=== PATIENT | female | born 1940 | race African-American/Black ===

== ENCOUNTER 2021-05-09 13:05 | Inpatient (IN) | payer OTHER, MEDICAID ==
[~2021-05-09] VITALS: Ht 165.1 cm; Wt 75.7 kg
[2021-05-09 13:12] VITALS: BP 98/47
--- NOTE | 2021-05-09 13:12 | NUR ---
christianne HERBERT, taken to bed 06 via [facility].
--- NOTE | 2021-05-09 13:30 | NUR ---
81 YEAR OLD FEMALE COMPLAINS OF HEADACHE, DIZZINESS X 4 DAYS. PT STATES TODAY SHE FELL ONTO BACK DUE TO DIZZINESS, DENIES HITTING HEAD. PT DENIES LOC, DENEIS NAUSEA VOMITTING. PT AOX4, BREATHING EVEN AND UNLABORED, SKIN WARM AND DRY. BED IN LOWEST POSITION, LOCKED, BED RAIL UPX1. PMH - HTN, VERTIGO ALLERGIES - NKA
[2021-05-09] MEDS ORDERED: MECLIZINE 25 MG TAB PO ONE (13:35)
[2021-05-09] MEDS ORDERED: ACETAMINOPHEN 325 MG TAB PO ONE (13:35)
[2021-05-09] MEDS ORDERED: NACL 0.9% 1,000 ML IV ONE (13:35)
[2021-05-09 13:46] LABS: BASOPHILS % (AUTO) 0.2 % (0.0-2.0); EOSINOPHILS # (AUTO) 0.2 K/uL (0-0.4); EOSINOPHILS % (AUTO) 2.7 % (0.0-4.0); HEMATOCRIT 28.3 % (36-48); HEMOGLOBIN 8.7 g/dL (12.0-16.0); LYMPHOCYTES # (AUTO) 2.7 K/uL (2.5-16.5); MEAN CORPUSCULAR HEMOGLOBIN 24 pg (27-31); MEAN CORPUSCULAR HGB CONC 31 g/dL (33-37); MEAN CORPUSCULAR VOLUME 77.6 fL (80-94); MONOCYTES # (AUTO) 0.5 K/uL (0.8-1.0); MONOCYTES % (AUTO) 7.3 % (1.7-9.3); NEUTROPHILS # (AUTO) 3.9 K/uL (1.8-7.7); NEUTROPHILS % (AUTO) 52.8 % (42.2-75.2); PLATELET COUNT (AUTO) 356 K/uL (140-450); RED BLOOD CELL COUNT(AUTO) 3.64 MIL/uL (4.20-5.40); WHITE BLOOD COUNT (AUTO) 7.3 K/uL (4.8-10.8)
[2021-05-09 14:06] LABS: ALBUMIN 3.2 g/dL (3.4-5.0); ANION GAP 11.7 (8-16); ASPARTATE AMINOTRANSFERASE 22 U/L (15-37); CHLORIDE 109 mmol/L (98-107); CREATININE 1.5 mg/dL (0.6-1.3); GLUCOSE 93 mg/dL (74-106); POTASSIUM 3.7 mmol/L (3.5-5.1); SODIUM SERUM 139 mmol/L (136-145); TOTAL BILIRUBIN 0.2 mg/dL (0.0-1.0); UREA NITROGEN, BLOOD 33 mg/dL (7-18)
--- NOTE | 2021-05-09 15:30 | NUR ---
PT ALERT AND AWAKE, BREATHING EVEN AND UNLABORED. NO DISTRESS NOTED. WILL CONTINUE TO MONITOR.
[2021-05-09 16:06] LABS: APPEARANCE,URINE CLEAR (CLEAR); BILIRUBIN,URINE 1+ (NEGATIVE); BLOOD, URINE NEGATIVE (NEGATIVE); COLOR,URINE YELLOW (YELLOW); LEUKOCYTE ESTERASE ,URINE NEGATIVE (NEGATIVE); NITRITE, URINE NEGATIVE (NEGATIVE); UGLUCOSE NEGATIVE (NEGATIVE)
--- NOTE | 2021-05-09 17:00 | NUR ---
PT ALERT AND AWAKE, BREATHING EVEN AND UNLABORED. NO DISTRESS NOTED. WILL CONTINUE TO MONITOR.
[2021-05-09] MEDS ORDERED: IBUPROFEN 600 MG TAB PO SCH (17:05)
[2021-05-09] MEDS ORDERED: KETOROLAC 30 MG/ML VIAL IVP ONE (17:05)
--- NOTE | 2021-05-09 17:36 | NUR ---
PT ATTEMPTED TO AMBULATE WITH RN AND ERMD AT BEDSIDE, PT STATES SHE WAS STILL DIZZY AND APPEARED UNSTABLE WHEN GETTING UP. PT ONLY ABLE TO AMBULATE SOME STEPS BEFORE ASSISTED BACK TO BED
[2021-05-09] MEDS ORDERED: ACETAMINOPHEN 325 MG TAB PO PRN (17:55)
[2021-05-09] MEDS ORDERED: DOCUSATE SODIUM 100 MG GELCAP PO PRN (17:55)
[2021-05-09] MEDS ORDERED: guaiFENesin DM 200/20 MG-10 ML 10 ML UDC PO PRN (17:55)
[2021-05-09] MEDS ORDERED: ONDANSETRON 4 MG/2 ML VIAL IM/IVP PRN (17:55)
[2021-05-09] MEDS ORDERED: ZOLPIDEM 5 MG TAB PO PRN (17:55)
[2021-05-09] MEDS ORDERED: MECLIZINE 25 MG TAB PO PRN (18:00)
[2021-05-09] MEDS ORDERED: cefTRIAXone 1,000 MG VIAL ONE (18:34)
[2021-05-09] MEDS ORDERED: HYDR-1098 PO (18:37)
[2021-05-09] MEDS ORDERED: AMLO10TA PO (18:37)
[2021-05-09] MEDS ORDERED: FOLI1TAB90 PO (18:37)
[2021-05-09] MEDS ORDERED: LYR50 PO (18:37)
[2021-05-09] MEDS ORDERED: ZOLP5TAB1 PO (18:37)
[2021-05-09] MEDS ORDERED: BACL10TA4 PO (18:37)
[2021-05-09] MEDS ORDERED: PANT40EC PO (18:37)
[2021-05-09] MEDS ORDERED: APIX5TAB PO (18:37)
[2021-05-09] MEDS ORDERED: SENN-73 PO (18:37)
[2021-05-09] MEDS ORDERED: LISI-486 PO (18:37)
[2021-05-09] MEDS ORDERED: METO25TE71 PO (18:37)
[2021-05-09] MEDS: NACL 0.9% 1,000 ML IV SCH (18:41)
--- NOTE | 2021-05-09 19:13 | NUR ---
REPORT GIVEN TO TONY ROOT, TRANSFER OF CARE AT THIS TIME
--- NOTE | 2021-05-09 19:14 | NUR ---
RECEIVED REPORT FROM SYLVIE ROOT FOR CONTINUITY OF CARE. PT IN BED STILL FEELING DIZZY. PT DENIES ANY PAIN OR DISCOMFORT AT THIS TIME.
[2021-05-09 19:28] LABS: PROTHROMBIN TIME 10.3 secs (10.8-13.4)
[2021-05-09 19:38] LABS: CHOL/HDL RATIO 3.9 (1-4.5); FREE T4 (FREE THYROXINE) 0.78 ng/dL (0.76-1.46); MAGNESIUM 1.9 mg/dL (1.8-2.4); PHOSPHORUS 3.3 mg/dL (2.5-4.9); THYROID STIMULATING HORMONE 0.78 uIU/mL (0.34-3.74)
--- NOTE | 2021-05-09 19:51 | NUR ---
RECEIVED REPORT FROM TONY ROOT ER NURSE OVER THE PHONE, PT IN STABLE CONDITION.
[2021-05-09 20:30] VITALS: BP 103/56
--- NOTE | 2021-05-09 20:30 | NUR ---
PT UP TO FLOOR VIA GURNEY, SHE WAS ABLE TO ASSIST WITH TRANSFER TO BED A OF ROOM 120. MRSA SWAB DONE, PT HAS R WRIST G 20 RUINING N/S AT 120. V/S FOLLOWS: T 97.0 P 56 R 20 B/P 130/70 02 100% ON ROOM AIR. ADMISSION QUESTIONS ASKED AND ANSWERED. ALL FALLS PRECAUTIONS IN PLACE
--- NOTE | 2021-05-09 21:00 | NUR ---
Patient will be admitted to care of DR. SHIRLEY. Admited to TELEMETRY. Will go to room 120A. Belongings list completed. Report to BALDEMAR ROOT. VSS STABLE. PT TRANSPORTED BY RN AND EMT VIA [facility].
[2021-05-10] MEDS: HYDROcodone/APAP 7.5/325 MG 1 TAB PO PRN ×2 (00:33→19:55)
--- NOTE | 2021-05-10 00:35 | NUR ---
PT IN BED , SHE C/O OF PAIN IN HER STOMACH, SHE WAS GIVEN NORCO 7.5/325MG PO/PRN FOR MODERATE PAIN. PT WAS ALSO GIVEN BED COOK AND UNDERSTANDS THAT SHE CANNOT WALK DUE TO DIZZINESS. NS RUNNING AT 120 V/S FOLLOWS: T 97 P 58 R 20 B/P 103/56 02 97% ON ROOM AIR. ALL REQUESTS ATTENDED BY STAFF.
--- NOTE | 2021-05-10 04:00 | NUR ---
PT WAS GIVEN REQUESTED BED COOK , N/S RUNNING ORDERED. V/S FOLLOWS: T 97.0 P 58 R 20 B/P 147/71 02 99% ON ROOM AIR.
[2021-05-10] MEDS: NACL 0.9% 1,000 ML IV SCH ×3 (06:15→18:32)
[2021-05-10 06:45] LABS: BASOPHILS # (AUTO) 0.1 K/uL (0.00-0.22); BASOPHILS % (AUTO) 2.1 % (0.0-2.0); EOSINOPHILS # (AUTO) 0.2 K/uL (0-0.4); EOSINOPHILS % (AUTO) 4.7 % (0.0-4.0); HEMATOCRIT 28.2 % (36-48); HEMOGLOBIN 8.8 g/dL (12.0-16.0); LYMPHOCYTES # (AUTO) 1.6 K/uL (2.5-16.5); LYMPHOCYTES % (AUTO) 32.4 % (20.5-51.1); MEAN CORPUSCULAR HEMOGLOBIN 25 pg (27-31); MEAN CORPUSCULAR HGB CONC 31 g/dL (33-37); MEAN CORPUSCULAR VOLUME 79.1 fL (80-94); MONOCYTES # (AUTO) 0.4 K/uL (0.8-1.0); MONOCYTES % (AUTO) 7.4 % (1.7-9.3); NEUTROPHILS # (AUTO) 2.7 K/uL (1.8-7.7); NEUTROPHILS % (AUTO) 53.4 % (42.2-75.2); PLATELET COUNT (AUTO) 366 K/uL (140-450); RED BLOOD CELL COUNT(AUTO) 3.57 MIL/uL (4.20-5.40); RED CELL DISTRIBUTION WIDTH 17.1 % (11.6-13.7)
[2021-05-10 07:00] LABS: ANION GAP 11.2 (8-16); CARBON DIOXIDE 25.6 mmol/L (21-32); CHLORIDE 110 mmol/L (98-107); CREATININE 1.1 mg/dL (0.6-1.3); GLUCOSE 91 mg/dL (74-106); POTASSIUM 3.8 mmol/L (3.5-5.1); SODIUM SERUM 143 mmol/L (136-145); UREA NITROGEN, BLOOD 23 mg/dL (7-18)
--- NOTE | 2021-05-10 07:33 | NUR ---
RECEIVED CHANGE OF SHIFT REPORT FROM NIGHT NURSE. PT CONDITION IS STABLE NOTED FROM BEDSIDE REPORT AND MORNING ROUND. PATIENT AA&OX4, ON RA, NS RUNNING AT 120 ML/HR. WILL CONTINUE TO MONITOR.
[2021-05-10 08:00] VITALS: BP 158/77
[2021-05-10] MEDS: PANTOPRAZOLE 40 MG TABEC PO SCH (08:38)
--- NOTE | 2021-05-10 09:26 | NUR ---
PERFORMED ROUNDS. PT CONDITION STABLE, VS WNL, ON RA, IVF RUNNING AT 120 ML/HR. WILL CONTINUE TO MONITOR.
--- NOTE | 2021-05-10 10:00 | NUR ---
ADMINISTERED MORPHINE PRN FOR SEVERE PAIN IN CHEST RATED 8/10 PER PT. BP 107/56, HR 61. PT TOLERATED WELL, WILL REASSESS PAIN IN 1 HR AND CONTINUE TO MONITOR. Addendum: 05/10/21 at 1232 by Cat Sexton RN RN WRONG PT. DISREGARD PREVIOUS NOTE.
[2021-05-10] MEDS ORDERED: hydrALAZINE 25 MG TAB PO SCH (11:00)
--- NOTE | 2021-05-10 11:00 | NUR ---
PERFORMED HOURLY ROUNDS. PT IS STABLE, AA&O X 4, NO IVF RUNNING, VERIFIED PATENCY VIA SALINE FLUSH, PT ON RA BREATHING NON LABORED AND NORMAL, SKIN INTACT, LEADS PROPERLY CONNECTED TO PT, BED IN LOWEST POSITION, CALL LIGHT WITHIN REACH, AND PERSONAL BELONGINGS WITHIN REACH. WILL CONTINUE TO MONITOR. Addendum: 05/10/21 at 1232 by Cat Sexton RN RN WRONG PT. DISREGARD PREVIOUS NOTE.
[2021-05-10] MEDS ORDERED: APIXABAN 2.5 MG TAB PO SCH (11:15)
[2021-05-10] MEDS ORDERED: lisinopriL 10 MG TAB PO SCH (11:15)
[2021-05-10] MEDS ORDERED: METOPROLOL SUCCINATE 50 MG TABER PO SCH (11:15)
--- NOTE | 2021-05-10 11:15 | NUR ---
ORDER FOR DISCHARGE COMPLETED. PT SIGNED ALL APPROPRIATE PAPERWORK, DISCUSSED POC AND DISCHARGE INSTRUCTIONS. PT VERBALIZED UNDERSTANDING OF D/C INSTRUCTIONS. DISCONTINUED IV, TOOK LEADS OFF, TOOK OFF ID BANDS, AND ENSURED PT HAD ALL PERSONAL BELONGINGS. PT WAS PICKED UP IN FRONT OF HOSPITAL BY DAUGHTER. Addendum: 05/10/21 at 1230 by Cat Sexton RN RN WRONG PT. DISREGARD PREVIOUS NOTES.
[2021-05-10 12:00] VITALS: BP 158/77
[2021-05-10] MEDS: SODIUM FERRIC GLUCONATE 125 MG in NACL 0.9% 100 ML IV SCH (12:59)
--- NOTE | 2021-05-10 13:00 | NUR ---
PERFORMED HOURLY ROUNDS. PT CONDITION IS STABLE, PT AA&O X 4, PT AWAKE AND TALKING. IV IS PATENT RUNNING AT 120 ML/HR. WILL CONTINUE TO MONITOR.
[2021-05-10] MEDS: PREGABALIN 50 MG CAP PO SCH ×2 (13:08→20:27)
[2021-05-10] MEDS: amLODIPine 5 MG TAB PO SCH (13:08)
[2021-05-10] MEDS: hydrALAZINE 25 MG TAB PO SCH ×2 (13:09→20:28)
--- NOTE | 2021-05-10 13:21 | NUR ---
ADMINISTERED TYLENOL PRN FOR FONSECA. PT TOLERATED MEDICATION WELL. WILL REASSESS IN 1 HOUR AND CONTINUE TO MONITOR .
--- NOTE | 2021-05-10 15:00 | NUR ---
PERFORMED HOURLY ROUNDS. PT STABLE. ON RA AND NS RUNNING AT 120 ML/HR. WILL CONTINUE TO MONITOR.
[2021-05-10 16:00] VITALS: BP 168/71
--- NOTE | 2021-05-10 17:00 | NUR ---
PERFORMED ROUNDS. PT STABLE WITH NS RUNNING AT 120 ML/HR. SHE IS AA&OX4. PT ON RA AND ON BEDREST. WILL CONTINUE TO MONITOR.
--- NOTE | 2021-05-10 19:00 | NUR ---
ENDORSED REPORT TO DEEP FAT FRY COOK NURSE VOLODYMYR. PT CONDITION STABLE, AA&OX4, SKIN INTACT, ON RA, BREATHING UNLABORED WITH NORMAL RESPIRATIONS, IV PATENT RUNNING AT 120 ML/HR, PT LAYING DOWN ON PHONE. DENIES ANY PAIN. DISCUSSED POC WITH THE NIGHT NURSE. PT HANDOFF COMPLETED.
--- NOTE | 2021-05-10 19:15 | NUR ---
RECEIVED PT AWAKE ON BED, AAOX4, ABLE TO MAKE NEEDS KNOWN, NO DIZZINESS AT THIS TIME BUT COMPLAINING OF HEADACHE, WILL MEDICATE PRN, SAFETY MEASURES IN PLACE, PLAN OF CARE DISCUSSED, CALL LIGHT WITHIN REACH.
[2021-05-10 20:00] VITALS: BP 144/69
[2021-05-10] MEDS: METOPROLOL SUCCINATE 50 MG TABER PO SCH (20:27)
--- NOTE | 2021-05-10 20:30 | NUR ---
DUE MEDS ADMINISTERED WITH EDUCATION PROVIDED, ALL NEEDS ATTENDED.
[2021-05-10] MEDS: APIXABAN 2.5 MG TAB PO SCH (20:43)
--- NOTE | 2021-05-10 22:40 | NUR ---
VOIDED FREELY VIA BED COOK, IVF INFUSING WELL, MONITORED CLOSELY.
[2021-05-11] VITALS: BP 152/72
--- NOTE | 2021-05-11 | NUR ---
PT AWAKE, WATCHING TV, VITAL SIGNS TAKEN, BP SLIGHTLY ELEVATED BUT STABLE, DENIES ANY CHEST PAIN, NO SOB NOTED, CONTINUE TO MONITOR CLOSELY.
--- NOTE | 2021-05-11 02:30 | NUR ---
ROUNDS MADE, SEEN PT SLEEPING, NO RESP DISTRESS NOTED, MONITORED CLOSELY.
[2021-05-11 04:00] VITALS: BP 156/78
[2021-05-11] MEDS: NACL 0.9% 1,000 ML IV SCH ×2 (04:20→11:35)
[2021-05-11] MEDS: PREGABALIN 50 MG CAP PO SCH ×3 (04:34→20:33)
[2021-05-11] MEDS: hydrALAZINE 25 MG TAB PO SCH ×3 (04:34→20:33)
--- NOTE | 2021-05-11 04:35 | NUR ---
PT AWAKE, DUE MEDS ADMINISTERED, TOLERATED WELL, VOIDED FREELY PER URINAL, CLEAR URINE OUTPUT NOTED, MONITORED CLOSELY.
[2021-05-11 07:13] LABS: BASOPHILS # (AUTO) 0.1 K/uL (0.00-0.22); BASOPHILS % (AUTO) 1.5 % (0.0-2.0); EOSINOPHILS # (AUTO) 0.2 K/uL (0-0.4); EOSINOPHILS % (AUTO) 3.6 % (0.0-4.0); HEMATOCRIT 29.5 % (36-48); HEMOGLOBIN 9.2 g/dL (12.0-16.0); LYMPHOCYTES # (AUTO) 1.3 K/uL (2.5-16.5); LYMPHOCYTES % (AUTO) 27.9 % (20.5-51.1); MEAN CORPUSCULAR HEMOGLOBIN 24 pg (27-31); MEAN CORPUSCULAR HGB CONC 31 g/dL (33-37); MEAN CORPUSCULAR VOLUME 77.8 fL (80-94); MONOCYTES # (AUTO) 0.3 K/uL (0.8-1.0); MONOCYTES % (AUTO) 5.4 % (1.7-9.3); NEUTROPHILS % (AUTO) 61.6 % (42.2-75.2); PLATELET COUNT (AUTO) 387 K/uL (140-450); RED BLOOD CELL COUNT(AUTO) 3.79 MIL/uL (4.20-5.40); RED CELL DISTRIBUTION WIDTH 17.1 % (11.6-13.7); WHITE BLOOD COUNT (AUTO) 4.8 K/uL (4.8-10.8)
--- NOTE | 2021-05-11 07:20 | NUR ---
PT AWAKE, NO DISTRESS NOTED, REPORT GIVEN TO DK DEGROOT FOR CONTINUITY OF CARE.
--- NOTE | 2021-05-11 07:21 | NUR ---
PT ENDORSED BY TRAVEL AGENT NURSE FOR CONTINUITY OF CARE, POC DISCUSSED. PT DENIES PAIN OR DIZZINESS AT THIS TIME. PT IS ON RA WITH CHEST RISING AND FALLING EVEN AND UNLABORED. PT HR ON THE TELE MONITOR IS 63. PT IS A&OX4. SKIN IS INTACT WITH A R WRIST 20 G RUNNING NS @ 120 ML/HR. PT IS RECEIVING ROCEPHIN FOR UTI. PT LAST BOWEL WAS THE , PT REPORTED HAVING BOWEL MOVEMENTS EVERY 3-4 DAYS. WILL COLLECT STOOL SAMPLE WHEN A BOWEL MOVEMENT IS HAD. PT IS PENDING A PT EVAL. ALL SAFETY MEASURES IN PLACE, CALL LIGHT WITHIN REACH. WILL CONTINUE TO MONITOR.
[2021-05-11 07:37] LABS: ANION GAP 9.3 (8-16); CARBON DIOXIDE 25.9 mmol/L (21-32); CHLORIDE 106 mmol/L (98-107); CREATININE 0.8 mg/dL (0.6-1.3); GLUCOSE 94 mg/dL (74-106); POTASSIUM 3.2 mmol/L (3.5-5.1); SODIUM SERUM 138 mmol/L (136-145); UREA NITROGEN, BLOOD 9 mg/dL (7-18)
[2021-05-11 08:00] VITALS: BP 141/74
--- NOTE | 2021-05-11 08:04 | NUR ---
PT AT BEDSIDE TO DO AN EVAL.
--- NOTE | 2021-05-11 08:20 | NUR ---
NEPHRO AT BEDSIDE, REPORTED KIDNEY FUNCTION IS DOING GOOD AND WE CAN DECREASE FLUIDS TO TKO, 5ML/HR.
[2021-05-11] MEDS: METOPROLOL SUCCINATE 50 MG TABER PO SCH ×2 (08:30→20:32)
[2021-05-11] MEDS: lisinopriL 10 MG TAB PO SCH (08:30)
[2021-05-11] MEDS: PANTOPRAZOLE 40 MG TABEC PO SCH (08:30)
[2021-05-11] MEDS: APIXABAN 2.5 MG TAB PO SCH ×2 (08:31→20:34)
--- NOTE | 2021-05-11 08:43 | NUR ---
THA MEDICATION ADMINISTERED PER MD ORDER. PT EDUCATION PROVIDED, PT VERBALIZED UNDERSTANDING. PT IV PATENT AND INTACT, DECLINED ANY PAIN OR DIZZINESS AT THIS TIME. PT VOIDED 450 ML, CLEAR URINE. NO ODOR NOTED. PT SHEETS CHANGE. PT IS SITTING AT BEDSIDE EATING BREAKFAST. REPORTS ALL NEEDS ARE MET AT THIS TIME. ALL SAFETY MEASURES IN PLACE, CALL LIGHT WITHIN REACH. WILL CONTINUE TO MONITOR.
--- NOTE | 2021-05-11 08:46 | NUR ---
ADD ON TO PREVIOUS NOTE; IV FLUIDS DECREASED TO 5 ML FOR TKO.
--- NOTE | 2021-05-11 09:02 | NUR ---
PATIENT HAS BEEN SCREENED AND CATEGORIZED LOW NUTRITION RISK. PATIENT WILL BE SEEN WITHIN 7 DAYS OF ADMISSION. 05/16/[address]
--- NOTE | 2021-05-11 10:57 | NUR ---
ROUNDED ON PT, PT IS RESTING IN BED WITH FAMILY AT BEDSIDE. REPORTS ALL NEEDS ARE MET AT THIS TIME AND DENIES PAIN. ALL SAFETY MEASURES IN PLACE, CALL LIGHT WITHIN REACH. WILL CONTINUE TO MONITOR.
[2021-05-11] MEDS: amLODIPine 5 MG TAB PO SCH (11:44)
[2021-05-11] MEDS: POTASSIUM CHLORIDE 10 MEQ TABER PO PRN (11:44)
[2021-05-11 12:00] VITALS: BP 151/66
--- NOTE | 2021-05-11 12:08 | NUR ---
THA MEDICATION ADMINISTERED PER MD ORDER, PT EDUCATION PROVIDED. PT TOLERATED ADMINISTRATION AND REPORTED ALL NEEDS ARE MET. WILL CONTINUE TO MONITOR.
[2021-05-11] MEDS: SODIUM FERRIC GLUCONATE 125 MG in NACL 0.9% 100 ML IV SCH (12:20)
--- NOTE | 2021-05-11 14:05 | NUR ---
ROUNDED ON PT, PT IS STABLE AND VERBALIZED ALL NEEDS ARE MET. CALL LIGHT WITHIN REACH. WILL CONTINUE TO MONITOR.
[2021-05-11 16:00] VITALS: BP 151/85
--- NOTE | 2021-05-11 16:17 | NUR ---
DC PLANNING: PATIENT ADMITTED WITH EPISODE OF DIZZINESS AND INITIAL WEAKNESS. PATIENT LIVES IN A SECOND FLOOR APARTMENT WITH STAIRS, PATIENT LIVES WITH HER GRANDDAUGHTER AND GRANDDAUGHTERS BOYFRIEND. STATES SHE IS CURRENTLY STAYING WITH HER SISTER IN [place] IN A SECOND FLOOR APARTMENT WITH STAIRS UNTIL SHE FINDS A GROUND FLOOR APARTMENT. WILL APPLY WITH [employer] FOR HER GRANDDAUGHTER TO BE HER CAREGIVER. HAS A FWW, NO OTHER DME OR HOME HEALTH SERVICE. PLAN IS FOR PATIENT TO RETURN TO HER SISTERS APARTMENT. CM WILL CONTINUE TO FOLLOW FOR NEEDS.
--- NOTE | 2021-05-11 16:18 | NUR ---
ROUNDED ON PT, PT IS RESTING IN BED AND VERBALIZED ALL NEEDS ARE. PT DOWN GRADED TO MED SURG. PT IS STABLE. WILL CONTINUE TO MONITOR.
[2021-05-11] MEDS: HYDROcodone/APAP 7.5/325 MG 1 TAB PO PRN (18:13)
--- NOTE | 2021-05-11 18:13 | NUR ---
THA ABX ADMINISTERED PER MD ORDER, PT COMPLAINED OF 6/10 PAIN. PRN PAIN MEDICATION ADMINISTERED. PT EDUCATION PROVIDED. PT VERBALIZED UNDERSTANDING AND VERBALIZED ALL OTHER NEEDS ARE MET. CALL LIGHT WITHIN REACH, ALL SAFETY MEASURES IN PLACE. WILL CONTINUE TO MONITOR.
--- NOTE | 2021-05-11 19:04 | NUR ---
PT WILL BE ENDORSED TO PERSONAL INSURANCE ADVISOR RN IN STABLE CONDITION.
--- NOTE | 2021-05-11 19:05 | NUR ---
RECEIVED PATIENT FROM AM NURSE FOR CONTINUITY OF CARE. PATIENT A/A/O X4. RESPIRATORY EVEN AND UNLABORED, ON ROOM AIR. NO SIGN OF DISTRESS NOTED. SKIN WARM, DRY, NON DIAPHORETIC. IV ON RIGHT WRIST 20G, INTACT AND PATENT, TKO. PATIENT DENIES ANY PAIN OR DISCOMFORT, ABLE TO MAKE NEEDS KNOWN. INFORMED PATIENT NOTIFY STAFF WHEN HAVE BM. PLAN OF CARE DISCUSSED, PATIENT VERBALIZED UNDERSTANDING. CALL LIGHT WITHIN REACH. PRECAUTION IN PLACE. WILL CONTINUE TO MONITOR.
[2021-05-11 20:00] VITALS: BP 143/60
--- NOTE | 2021-05-11 20:33 | NUR ---
SCHEDULE MEDICATIONS GIVEN WITH EDUCATION. PATIENT VERBALIZED UNDERSTANDING. PATIENT TOLERATED WELL. PRECAUTION IN PLACE. CALL LIGHT WITHIN REACH. WILL CONTINUE TO MONITOR.
--- NOTE | 2021-05-11 22:00 | NUR ---
PATIENT IS SLEEPING, CHEST RISE AND FALL, NO SIGN OF RESPIRATORY DISTRESS NOTED. PRECAUTION IN PLACE. CALL LIGHT WITHIN REACH. WILL CONTINUE TO MONITOR.
--- NOTE | 2021-05-12 | NUR ---
PATIENT IS SLEEPING, CHEST RISE AND FALL, NO SIGN OF DISTRESS NOTED. PRECAUTION IN PLACE. CALL LIGHT WITHIN REACH. WILL CONTINUE TO MONITOR.
--- NOTE | 2021-05-12 02:00 | NUR ---
ROUND CHECK. PATIENT IS SLEEPING, CHEST RISE AND FALL. NO SIGN OF DISTRESS NOTED. PRECAUTION IN PLACE. CALL LIGHT WITHIN REACH. WILL CONTINUE TO MONITOR.
--- NOTE | 2021-05-12 02:44 | NUR ---
ASSIST PATIENT TO USE BEDPAN, PATIENT TOLERATED WELL, NO SIGN OF DISTRESS NOTED. PRECAUTION IN PLACE. CALL LIGHT WITHIN REACH. WILL CONTINUE TO MONITOR.
[2021-05-12 04:00] VITALS: BP 141/77
[2021-05-12] MEDS: PREGABALIN 50 MG CAP PO SCH (04:47)
[2021-05-12] MEDS: hydrALAZINE 25 MG TAB PO SCH (04:47)
--- NOTE | 2021-05-12 04:48 | NUR ---
SCHEDULE MEDICATIONS GIVEN WITH EDUCATION. PATIENT VERBALIZED UNDERSTANDING. NO SIGN OF DISTRESS NOTED. PRECAUTION IN PLACE. CALL LIGHT WITHIN REACH. WILL CONTINUE TO MONITOR.
[2021-05-12 05:34] LABS: BASOPHILS # (AUTO) 0.1 K/uL (0.00-0.22); BASOPHILS % (AUTO) 1.4 % (0.0-2.0); EOSINOPHILS # (AUTO) 0.2 K/uL (0-0.4); HEMATOCRIT 28.9 % (36-48); HEMOGLOBIN 9.1 g/dL (12.0-16.0); LYMPHOCYTES # (AUTO) 1.4 K/uL (2.5-16.5); LYMPHOCYTES % (AUTO) 30.2 % (20.5-51.1); MEAN CORPUSCULAR HEMOGLOBIN 24 pg (27-31); MEAN CORPUSCULAR HGB CONC 32 g/dL (33-37); MEAN CORPUSCULAR VOLUME 76.8 fL (80-94); MONOCYTES # (AUTO) 0.3 K/uL (0.8-1.0); MONOCYTES % (AUTO) 7.5 % (1.7-9.3); NEUTROPHILS # (AUTO) 2.6 K/uL (1.8-7.7); NEUTROPHILS % (AUTO) 56.9 % (42.2-75.2); PLATELET COUNT (AUTO) 371 K/uL (140-450); RED BLOOD CELL COUNT(AUTO) 3.77 MIL/uL (4.20-5.40); RED CELL DISTRIBUTION WIDTH 16.9 % (11.6-13.7); WHITE BLOOD COUNT (AUTO) 4.5 K/uL (4.8-10.8)
[2021-05-12 05:45] LABS: ANION GAP 9.1 (8-16); CARBON DIOXIDE 26.3 mmol/L (21-32); CHLORIDE 105 mmol/L (98-107); CREATININE 0.8 mg/dL (0.6-1.3); GLUCOSE 101 mg/dL (74-106); POTASSIUM 3.4 mmol/L (3.5-5.1); SODIUM SERUM 137 mmol/L (136-145); UREA NITROGEN, BLOOD 8 mg/dL (7-18)
--- NOTE | 2021-05-12 05:46 | NUR ---
ASSIST PATIENT TO USE BEDPAN, PATIENT TOLERATED WELL. NO SIGN OF DISTRESS NOTED. PRECAUTION IN PLACE. CALL LIGHT WITHIN REACH. WILL CONTINUE TO MONITOR.
--- NOTE | 2021-05-12 07:12 | NUR ---
ENDORSED PATIENT TO AM NURSE FOR CONTINUITY OF CARE. PATIENT IS STABLE.
--- NOTE | 2021-05-12 07:21 | NUR ---
PT ENDORSED BY HEEL COVERER MACHINE OPERATOR NURSE FOR CONTINUITY OF CARE, POC DISCUSSED. PT IS RESTING IN BED ON ROOM AIR WITH CHEST RISING AND FALLING EVEN AND UNLABORED. ALL SAFETY MEASURES IN PLACE. PT DENIES PAIN OR DIZZINESS AT THIS TIME. PT IS HAS A LEFT WRIST 20 G RUNNING TKO. STILL NEED TO OBTAIN A STOOL SAMPLE FROM PT, PT IS AWARE AND WILL CALL WHEN SHE HAS A BOWEL MOVEMENT. ALL SAFETY MEASURES IN PLACE, CALL LIGHT WITHIN REACH. WILL CONTINUE TO MONITOR.
[2021-05-12 08:00] VITALS: BP 131/62
[2021-05-12 08:08] LABS: T4 (THYROXINE) 5.3 ug/dL (4.5-12.0)
[2021-05-12] MEDS: APIXABAN 2.5 MG TAB PO SCH (08:28)
[2021-05-12] MEDS: POTASSIUM CHLORIDE 10 MEQ TABER PO PRN (08:29)
[2021-05-12] MEDS: METOPROLOL SUCCINATE 50 MG TABER PO SCH (08:29)
[2021-05-12] MEDS: lisinopriL 10 MG TAB PO SCH (08:29)
[2021-05-12] MEDS: PANTOPRAZOLE 40 MG TABEC PO SCH (08:30)
[2021-05-12] MEDS ORDERED: FERR325E14 PO (08:41)
[2021-05-12 09:07] LABS: TRANSFERRIN 256 mg/dL (192-364)
[2021-05-12] MEDS ORDERED: CEPH250C16 PO (09:09)
--- NOTE | 2021-05-12 09:21 | NUR ---
THA MEDICATION HAS BEEN ADMINISTERED PER MD ORDER, PT EDUCATION PROVIDED. PT FINISHED BREAKFAST AND WAS ABLE TO AMBULATE TO BATHROOM WITH A STEADY GAIT. ALL SAFETY MEAUSRES IN PLACE, CALL LIGHT WITHIN REACH. WILL CONTINUE TO MONITOR
--- NOTE | 2021-05-12 11:25 | NUR ---
PT HAS BEEN DC'D. ALL PT EDUCATION HAS BEEN PREFORMED INCLUDING, S/S TO MONITOR FOR, FOLLOW UP WITH PCP, MEDICATION TO START AND WHICH TO CONTINUE, WHAT SHE WAS TREATED FOR AND WHEN TO COME BACK TO ER IF SYMPTOMS WORSEN, PT VITAL SIGNS WNL. PT IS IN STABLE CONDITION WITH SKIN INTACT, IV REMOVED. PT VERBALIZED UNDERSTANDING AND ID BAND REMOVED. PT PICKED UP BY HER FIANCE. ALL BELONGING WITH PT.
--- NOTE | 2021-05-12 11:30 | NUR ---
PRESCRIPTION LEFT, CALLED DAUGHTER AND SHE STATED SHE WILL COME PICK IT UP WITHIN THE NEXT COUPLE HOURS
[2021-05-16 08:08] LABS: FERRITIN 24 ng/mL (15-150); FOLIC ACID > 20.00 ng/mL (>3.0)
== END 2021-05-12 11:29 | disposition home or self-care (01) | DRG 73 ==
LOC: MED 13:05 → MTU 17:51
PROVIDERS: ADMIT Family Medicine; ATTEND Family Medicine
DX: G90.9 Disorder of the autonomic nervous system, unspecified (principal); G93.41 Metabolic encephalopathy; N17.0 Acute kidney failure with tubular necrosis; N39.0 Urinary tract infection, site not specified; E44.1 Mild protein-calorie malnutrition; C85.90 Non-Hodgkin lymphoma, unspecified, unspecified site; E78.5 Hyperlipidemia, unspecified; I67.2 Cerebral atherosclerosis; D63.8 Anemia in other chronic diseases classified elsewhere; Z90.710 Acquired absence of both cervix and uterus
CPT/HCPCS: 36415; 70450; 71045; 80048; 80053; 81001; 82140; 82150; 82607; 82728; 82746; 83036; 83540; 83690; 83735; 83880; 84100; 84436; 84439; 84443; 84479; 84484; 85025; 85045; 85610; 85730; 87081; 87086; 93880; 96361; 96365; 96375; 99285; J0696; J1885; J2916; J7060; J8597

== ENCOUNTER 2023-04-10 14:09 | Emergency (ER) | payer OTHER, MEDICAID ==
[~2023-04-10] VITALS: Ht 162.6 cm; Wt 70.8 kg
[~2023-04-10 14:09] MED LIST: AMLO10TA PO; APIX5TAB PO; BACL10TA4 PO; CEPH250C16 PO; FERR325E14 PO; FOLI1TAB90 PO; HYDR-1098 PO; LISI-486 PO; LYR50 PO; METO25TE71 PO; PANT40EC PO; SENN-73 PO; ZOLP5TAB1 PO
[2023-04-10 14:18] VITALS: BP 154/89; PULSE 51; RESP 18; TEMP 98.5; O2SAT 100
--- NOTE | 2023-04-10 14:22 | NUR ---
pt ambulates with walker to bed 12
[2023-04-10 15:21] LABS: BILIRUBIN,URINE 2+ (NEGATIVE); BLOOD, URINE NEGATIVE (NEGATIVE); LEUKOCYTE ESTERASE ,URINE NEGATIVE (NEGATIVE); NITRITE, URINE NEGATIVE (NEGATIVE); PH,URINE 5.5 (5.0-9.0); UGLUCOSE NEGATIVE (NEGATIVE)
[2023-04-10 15:22] LABS: APPEARANCE,URINE CLEAR (CLEAR); COLOR,URINE YELLOW (YELLOW)
[2023-04-10] MEDS ORDERED: DICYCLOMINE HCL LIQUID 20 MG, ALUMINUM HYD/MAG/SIMETHICONE 30 ML, LIDOCAINE VISCOUS 2% ... PO ONE ×3 (15:55)
[2023-04-10] MEDS ORDERED: HYDROcodone/APAP 5/325 MG 1 TAB TAB PO ONE (15:55)
[2023-04-10] MEDS ORDERED: ONDANSETRON 4 MG ODT PO ONE (15:55)
[2023-04-10] MEDS ORDERED: DICYCLOMINE HCL LIQUID 10 MG/5 ML UDC ONE (16:09)
[2023-04-10] MEDS ORDERED: ALUMINUM HYD/MAG/SIMETHICONE 30 ML UDC ONE (16:09)
--- NOTE | 2023-04-10 16:19 | NUR ---
PT MEDICATED PER MD ORDER.
[2023-04-10 16:23] LABS: BASOPHILS # (AUTO) 0.1 K/uL (0.00-0.22); BASOPHILS % (AUTO) 0.8 % (0.0-2.0); EOSINOPHILS % (AUTO) 0.1 % (0.0-4.0); HEMATOCRIT 36.6 % (36-48); HEMOGLOBIN 11.9 g/dL (12.0-16.0); LYMPHOCYTES # (AUTO) 1.4 K/uL (2.5-16.5); LYMPHOCYTES % (AUTO) 18.4 % (20.5-51.1); MEAN CORPUSCULAR HEMOGLOBIN 28 pg (27-31); MEAN CORPUSCULAR HGB CONC 33 g/dL (33-37); MEAN CORPUSCULAR VOLUME 84.8 fL (80-94); MONOCYTES # (AUTO) 0.5 K/uL (0.8-1.0); MONOCYTES % (AUTO) 6.3 % (1.7-9.3); NEUTROPHILS # (AUTO) 5.6 K/uL (1.8-7.7); NEUTROPHILS % (AUTO) 74.4 % (42.2-75.2); PLATELET COUNT (AUTO) 370 K/uL (140-450); RED BLOOD CELL COUNT(AUTO) 4.31 MIL/uL (4.20-5.40); WHITE BLOOD COUNT (AUTO) 7.5 K/uL (4.8-10.8)
[2023-04-10 16:50] LABS: ALBUMIN 3.6 g/dL (3.4-5.0); ANION GAP 13.9 (8-16); ASPARTATE AMINOTRANSFERASE 24 U/L (15-37); CHLORIDE 103 mmol/L (98-107); CREATININE 1.3 mg/dL (0.6-1.3); GLUCOSE 131 mg/dL (74-106); LIPASE 54 U/L (73-393); SODIUM SERUM 141 mmol/L (136-145); TOTAL BILIRUBIN 1.6 mg/dL (0.0-1.0); UREA NITROGEN, BLOOD 28 mg/dL (7-18)
[2023-04-10 16:53] LABS: POTASSIUM 2.9 mmol/L (3.5-5.1)
--- NOTE | 2023-04-10 17:00 | NUR ---
PT OFFERED JELLO AND ORANGE JUICE, FINISHED 100% OF SNACKS
[2023-04-10] MEDS: ACETAMINOPHEN EXTRA STRENGTH 500 MG TAB PO ONE ×2 (17:44→17:59)
[2023-04-10] MEDS: POTASSIUM CHLORIDE 10 MEQ TABER PO ONE ×2 (17:45→18:00)
[2023-04-10] MEDS ORDERED: MAG355OR2 PO (18:16)
[2023-04-10] MEDS ORDERED: ONDA-188 PO (18:16)
[2023-04-10] MEDS ORDERED: FAMO-90 PO (18:16)
--- NOTE | 2023-04-10 19:50 | NUR ---
IV removed, catheter intact and site benign. Applied folded 4x4 gauze and tape to stop bleeding.
[2023-04-10 19:52] VITALS: BP 164/93; PULSE 79; RESP 20; TEMP 98.5; O2SAT 98
--- NOTE | 2023-04-10 19:52 | NUR ---
Patient discharged. Written and verbal after care instructions given and explained. Patient alert, oriented and verbalized understanding of instructions. Ambulatory with steady gait. All questions addressed prior to discharge. ID band removed. Patient advised to follow up with PMD. Rx of Pepcid, Maalox Maximum Strength Susp, and Zofran ODT given. Patient educated on indication of medication including possible reaction and side effects. Opportunity to ask questions provided and answered.
== END 2023-04-10 19:52 | disposition home or self-care (01) ==
LOC: MED 14:09
DX: E87.6 Hypokalemia (principal); R10.13 Epigastric pain; R63.0 Anorexia; R19.7 Diarrhea, unspecified; R42 Dizziness and giddiness; E11.9 Type 2 diabetes mellitus without complications; I10 Essential (primary) hypertension; F03.90 Unspecified dementia, unspecified severity, without behavioral disturbance, psychotic disturbance, mood disturbance, and anxiety; Z79.899 Other long term (current) drug therapy; Z90.49 Acquired absence of other specified parts of digestive tract; Z90.710 Acquired absence of both cervix and uterus; Z86.73 Personal history of transient ischemic attack (TIA), and cerebral infarction without residual deficits; Z85.72 Personal history of non-Hodgkin lymphomas
CPT/HCPCS: 36415; 74176; 80053; 81003; 82948; 83605; 83690; 84484; 85025; 93005; 99285; Q0162

== ENCOUNTER 2023-05-27 11:37 | Inpatient (IN) | payer OTHER, MEDICAID ==
[~2023-05-27] VITALS: Ht 170.2 cm; Wt 77.1 kg
[~2023-05-27 11:37] MED LIST changes: +FAMO-90 PO; +MAG355OR2 PO; +ONDA-188 PO
[2023-05-27 12:14] VITALS: BP 78/36; PULSE 53; RESP 18; TEMP 97.8; O2SAT 94
[2023-05-27] MEDS ORDERED: NACL 0.9% 2,000 ML IV ONE (12:20)
[2023-05-27] MEDS ORDERED: cefTRIAXone 1,000 MG VIAL ONE (12:39)
[2023-05-27 12:51] LABS: BASOPHILS # (AUTO) 0.1 K/uL (0.00-0.22); BASOPHILS % (AUTO) 1.1 % (0.0-2.0); EOSINOPHILS # (AUTO) 0.2 K/uL (0-0.4); EOSINOPHILS % (AUTO) 2.5 % (0.0-4.0); HEMATOCRIT 29.3 % (36-48); HEMOGLOBIN 9.4 g/dL (12.0-16.0); LYMPHOCYTES # (AUTO) 1.3 K/uL (2.5-16.5); MEAN CORPUSCULAR HEMOGLOBIN 28 pg (27-31); MEAN CORPUSCULAR HGB CONC 32 g/dL (33-37); MONOCYTES # (AUTO) 0.4 K/uL (0.8-1.0); MONOCYTES % (AUTO) 5.9 % (1.7-9.3); NEUTROPHILS # (AUTO) 4.3 K/uL (1.8-7.7); NEUTROPHILS % (AUTO) 69.5 % (42.2-75.2); PLATELET COUNT (AUTO) 285 K/uL (140-450); RED CELL DISTRIBUTION WIDTH 13.5 % (11.6-13.7); WHITE BLOOD COUNT (AUTO) 6.1 K/uL (4.8-10.8)
[2023-05-27 13:11] LABS: ALANINE AMINOTRANSFERASE 13 U/L (12-78); ALBUMIN 2.3 g/dL (3.4-5.0); ALKALINE PHOSPHATASE 67 U/L (50-136); ASPARTATE AMINOTRANSFERASE 20 U/L (15-37); CALCIUM 7.1 mg/dL (8.5-10.1); CARBON DIOXIDE 23.8 mmol/L (21-32); CHLORIDE 108 mmol/L (98-107); CREATININE 1.3 mg/dL (0.6-1.3); GLUCOSE 143 mg/dL (74-106); SODIUM SERUM 139 mmol/L (136-145); TOTAL BILIRUBIN 0.2 mg/dL (0.0-1.0); TOTAL PROTEIN, SERUM 5.6 g/dL (6.4-8.2); UREA NITROGEN, BLOOD 20 mg/dL (7-18)
[2023-05-27 13:13] LABS: LACTIC ACID 1.7 mmol/L (0.4-2.0); LIPASE 51 U/L (73-393)
[2023-05-27 13:40] LABS: POTASSIUM 2.8 mmol/L (3.5-5.1)
[2023-05-27] MEDS ORDERED: POTASSIUM CHL 40 MEQ/ D5-1/2NS 1,000 ML IV ONE (13:50)
[2023-05-27] MEDS ORDERED: MAG SULF 2000 MG/WATER PREMIX 50 ML IV PRN (16:10)
[2023-05-27] MEDS ORDERED: ACETAMINOPHEN 325 MG TAB PO PRN (16:10)
[2023-05-27] MEDS ORDERED: DOCUSATE SODIUM 100 MG GELCAP PO PRN (16:10)
[2023-05-27] MEDS ORDERED: ZOLPIDEM 10 MG TAB PO PRN (16:10)
[2023-05-27] MEDS ORDERED: LORazepam 2 MG/ML VIAL IVP PRN (16:10)
[2023-05-27] MEDS ORDERED: MORPHINE SULFATE 2 MG/ML SYR IVP PRN (16:10)
[2023-05-27] MEDS ORDERED: POTASSIUM CHLORIDE 10 MEQ TABER PO PRN (16:10)
[2023-05-27] MEDS ORDERED: ONDANSETRON 4 MG/2 ML VIAL IVP PRN (16:10)
[2023-05-27 17:09] LABS: APPEARANCE,URINE SL CLOUDY (CLEAR); BILIRUBIN,URINE NEGATIVE (NEGATIVE); BLOOD, URINE TRACE-I (NEGATIVE); COLOR,URINE YELLOW (YELLOW); LEUKOCYTE ESTERASE ,URINE NEGATIVE (NEGATIVE); NITRITE, URINE NEGATIVE (NEGATIVE); PROTEIN,URINE NEGATIVE (NEGATIVE); UGLUCOSE NEGATIVE (NEGATIVE); UROBILINOGEN,URINE 0.2 EU/dL (0.2 - 1)
[2023-05-27 17:28] LABS: BACTERIA,URINE None Seen /HPF (None Seen); MUCUS,URINE 1+ /LPF (None Seen); RBC,URINE 0-5 /HPF (0-5); SQUAMOUS EPITHELIAL CELL,UR 0-3 (FEW) /LPF (0-3 (FEW)); TRICHOMONAS,URINE None Seen /HPF (None Seen); WBC,URINE 0-5 /HPF (0-5); YEAST,URINE None Seen /HPF (None Seen)
[2023-05-27] MEDS: NACL 0.9% 1,000 ML IV SCH (19:53)
[2023-05-27] MEDS: PREGABALIN 50 MG CAP PO SCH (21:29)
[2023-05-27] MEDS: APIXABAN 2.5 MG TAB PO SCH (21:30)
[2023-05-27 21:38] VITALS: PULSE 77; RESP 17; O2SAT 98
[2023-05-27 21:54] VITALS: PULSE 61
[2023-05-28] VITALS: BP 112/53; PULSE 58; PULSE 77; RESP 17; TEMP 96.9; O2SAT 98
[2023-05-28 04:00] VITALS: BP 102/49; PULSE 53; RESP 17; TEMP 97.6; O2SAT 97
[2023-05-28] MEDS: PREGABALIN 50 MG CAP PO SCH ×3 (04:28→20:27)
[2023-05-28 06:15] LABS: BASOPHILS # (AUTO) 0.1 K/uL (0.00-0.22); EOSINOPHILS # (AUTO) 0.2 K/uL (0-0.4); HEMATOCRIT 30.8 % (36-48); HEMOGLOBIN 9.9 g/dL (12.0-16.0); LYMPHOCYTES # (AUTO) 2.3 K/uL (2.5-16.5); LYMPHOCYTES % (AUTO) 33.9 % (20.5-51.1); MEAN CORPUSCULAR HEMOGLOBIN 28 pg (27-31); MEAN CORPUSCULAR HGB CONC 32 g/dL (33-37); MEAN CORPUSCULAR VOLUME 86.5 fL (80-94); MONOCYTES # (AUTO) 0.3 K/uL (0.8-1.0); NEUTROPHILS # (AUTO) 3.9 K/uL (1.8-7.7); NEUTROPHILS % (AUTO) 57.1 % (42.2-75.2); PLATELET COUNT (AUTO) 277 K/uL (140-450); RED BLOOD CELL COUNT(AUTO) 3.57 MIL/uL (4.20-5.40); RED CELL DISTRIBUTION WIDTH 13.5 % (11.6-13.7); WHITE BLOOD COUNT (AUTO) 6.9 K/uL (4.8-10.8)
[2023-05-28 06:24] LABS: ANION GAP 12.2 (8-16); CALCIUM 7.8 mg/dL (8.5-10.1); CARBON DIOXIDE 22.5 mmol/L (21-32); CHLORIDE 108 mmol/L (98-107); CREATININE 1.2 mg/dL (0.6-1.3); GLUCOSE 86 mg/dL (74-106); POTASSIUM 3.7 mmol/L (3.5-5.1); SODIUM SERUM 139 mmol/L (136-145); UREA NITROGEN, BLOOD 14 mg/dL (7-18)
[2023-05-28] MEDS: NACL 0.9% 1,000 ML IV SCH ×2 (06:33→22:46)
[2023-05-28 08:00] VITALS: BP 132/60; PULSE 58; PULSE 64; RESP 18; TEMP 97.5; O2SAT 98
[2023-05-28] MEDS: FOLIC ACID 1 MG TAB PO SCH (10:11)
[2023-05-28] MEDS: APIXABAN 2.5 MG TAB PO SCH ×2 (10:12→20:33)
[2023-05-28 12:00] VITALS: BP 97/61; PULSE 52; PULSE 53; RESP 18; TEMP 98.1; O2SAT 100
[2023-05-28] MEDS ORDERED: MECLIZINE 25 MG TAB PO PRN (12:40)
[2023-05-28 16:00] VITALS: BP 145/68; PULSE 56; PULSE 80; RESP 18; TEMP 98.6; O2SAT 97
[2023-05-28 20:00] VITALS: BP 146/71; PULSE 67; PULSE 70; RESP 18; TEMP 97.9; O2SAT 98
[2023-05-29] VITALS (7 sets, daily range): BP systolic 135–164; BP diastolic 66–85; PULSE 56–63; RESP 16–18; TEMP 97–98; O2SAT 98–100
[2023-05-29 04:33] LABS: BASOPHILS % (AUTO) 0.1 % (0.0-2.0); EOSINOPHILS # (AUTO) 0.3 K/uL (0-0.4); EOSINOPHILS % (AUTO) 4.5 % (0.0-4.0); HEMATOCRIT 28.8 % (36-48); HEMOGLOBIN 9.4 g/dL (12.0-16.0); LYMPHOCYTES # (AUTO) 2.4 K/uL (2.5-16.5); LYMPHOCYTES % (AUTO) 42.8 % (20.5-51.1); MEAN CORPUSCULAR HEMOGLOBIN 28 pg (27-31); MEAN CORPUSCULAR HGB CONC 33 g/dL (33-37); MEAN CORPUSCULAR VOLUME 85.7 fL (80-94); MONOCYTES # (AUTO) 0.3 K/uL (0.8-1.0); MONOCYTES % (AUTO) 5.3 % (1.7-9.3); NEUTROPHILS # (AUTO) 2.7 K/uL (1.8-7.7); NEUTROPHILS % (AUTO) 47.3 % (42.2-75.2); PLATELET COUNT (AUTO) 274 K/uL (140-450); RED BLOOD CELL COUNT(AUTO) 3.36 MIL/uL (4.20-5.40); RED CELL DISTRIBUTION WIDTH 13.6 % (11.6-13.7); WHITE BLOOD COUNT (AUTO) 5.7 K/uL (4.8-10.8)
[2023-05-29] MEDS: PREGABALIN 50 MG CAP PO SCH ×3 (04:33→20:59)
[2023-05-29 04:43] LABS: ANION GAP 9.5 (8-16); CALCIUM 7.9 mg/dL (8.5-10.1); CHLORIDE 108 mmol/L (98-107); CREATININE 1.1 mg/dL (0.6-1.3); GLUCOSE 87 mg/dL (74-106); POTASSIUM 3.5 mmol/L (3.5-5.1); SODIUM SERUM 138 mmol/L (136-145); UREA NITROGEN, BLOOD 11 mg/dL (7-18)
[2023-05-29] MEDS: NACL 0.9% 1,000 ML IV SCH (06:40)
[2023-05-29] MEDS: FOLIC ACID 1 MG TAB PO SCH (09:05)
[2023-05-29] MEDS: APIXABAN 2.5 MG TAB PO SCH ×2 (09:07→21:02)
[2023-05-29] MEDS: lisinopriL 20 MG TAB PO SCH (13:00)
[2023-05-30] VITALS (7 sets, daily range): BP systolic 153–159; BP diastolic 78–92; PULSE 58–63; RESP 18–20; TEMP 97.3–98; O2SAT 97–100
[2023-05-30] MEDS: NACL 0.9% 1,000 ML IV SCH (01:27)
[2023-05-30] MEDS: PREGABALIN 50 MG CAP PO SCH ×2 (05:10→13:05)
[2023-05-30 06:15] LABS: BASOPHILS # (AUTO) 0.1 K/uL (0.00-0.22); BASOPHILS % (AUTO) 1.3 % (0.0-2.0); EOSINOPHILS # (AUTO) 0.2 K/uL (0-0.4); EOSINOPHILS % (AUTO) 3.7 % (0.0-4.0); HEMATOCRIT 30.5 % (36-48); HEMOGLOBIN 9.8 g/dL (12.0-16.0); LYMPHOCYTES % (AUTO) 31.4 % (20.5-51.1); MEAN CORPUSCULAR HEMOGLOBIN 28 pg (27-31); MEAN CORPUSCULAR HGB CONC 32 g/dL (33-37); MEAN CORPUSCULAR VOLUME 86.2 fL (80-94); MONOCYTES # (AUTO) 0.4 K/uL (0.8-1.0); MONOCYTES % (AUTO) 5.8 % (1.7-9.3); NEUTROPHILS # (AUTO) 3.7 K/uL (1.8-7.7); NEUTROPHILS % (AUTO) 57.8 % (42.2-75.2); PLATELET COUNT (AUTO) 297 K/uL (140-450); RED BLOOD CELL COUNT(AUTO) 3.54 MIL/uL (4.20-5.40); RED CELL DISTRIBUTION WIDTH 13.4 % (11.6-13.7); WHITE BLOOD COUNT (AUTO) 6.4 K/uL (4.8-10.8)
[2023-05-30 06:34] LABS: ANION GAP 12.9 (8-16); CALCIUM 8.1 mg/dL (8.5-10.1); CARBON DIOXIDE 24.6 mmol/L (21-32); CHLORIDE 106 mmol/L (98-107); CREATININE 1.1 mg/dL (0.6-1.3); GLUCOSE 85 mg/dL (74-106); POTASSIUM 3.5 mmol/L (3.5-5.1); SODIUM SERUM 140 mmol/L (136-145); UREA NITROGEN, BLOOD 11 mg/dL (7-18)
[2023-05-30] MEDS: lisinopriL 20 MG TAB PO SCH (09:06)
[2023-05-30] MEDS: FOLIC ACID 1 MG TAB PO SCH (09:06)
[2023-05-30] MEDS: APIXABAN 2.5 MG TAB PO SCH (09:07)
[2023-05-30] MEDS ORDERED: LISI20TA29 PO (10:12)
== END 2023-05-30 13:45 | disposition home health service (06) | DRG 73 ==
LOC: MED 11:37 → MTU 16:02
PROVIDERS: ADMIT General Practice; ATTEND General Practice
DX: G90.8 Other disorders of autonomic nervous system (principal); E43 Unspecified severe protein-calorie malnutrition; Q25.46 Tortuous aortic arch; E87.6 Hypokalemia; I10 Essential (primary) hypertension; K21.9 Gastro-esophageal reflux disease without esophagitis; R00.1 Bradycardia, unspecified; E86.0 Dehydration; E83.42 Hypomagnesemia; D63.8 Anemia in other chronic diseases classified elsewhere; K59.00 Constipation, unspecified; I95.2 Hypotension due to drugs; T50.905A Adverse effect of unspecified drugs, medicaments and biological substances, initial encounter; Y92.89 Other specified places as the place of occurrence of the external cause; Z85.028 Personal history of other malignant neoplasm of stomach; Z79.899 Other long term (current) drug therapy; Z68.26 Body mass index [BMI] 26.0-26.9, adult
CPT/HCPCS: 36415; 71045; 80048; 80053; 81001; 82550; 83036; 83605; 83690; 83735; 83880; 84484; 85025; 87040; 87081; 87086; 93880; 96361; 96365; 97116; 97163-GP; 99291; J0696; J2270; J3475; Q0092

== ENCOUNTER 2023-07-01 15:28 | Inpatient (IN) | payer OTHER, MEDICAID ==
[~2023-07-01] VITALS: Ht 170.2 cm; Wt 72.6 kg
[~2023-07-01 15:28] MED LIST changes: -AMLO10TA PO; -BACL10TA4 PO; -CEPH250C16 PO; -HYDR-1098 PO; -LISI-486 PO; +LISI20TA29 PO; -METO25TE71 PO; +OMEP40EC23 PO; +SUCR1TAB35 PO
[2023-07-01 16:07] VITALS: BP 129/70; PULSE 58; RESP 20; TEMP 98.1; O2SAT 100
[2023-07-01] MEDS ORDERED: NACL 0.9% 1,000 ML IV SCH (16:25)
[2023-07-01] MEDS ORDERED: ONDANSETRON 4 MG/2 ML VIAL IVP ONE (17:00)
[2023-07-01] MEDS ORDERED: MORPHINE SULFATE 4 MG/ML SYR IVP ONE (17:00)
[2023-07-01 17:37] LABS: BASOPHILS # (AUTO) 0.1 K/uL (0.00-0.22); BASOPHILS % (AUTO) 1.4 % (0.0-2.0); EOSINOPHILS # (AUTO) 0.2 K/uL (0-0.4); EOSINOPHILS % (AUTO) 2.9 % (0.0-4.0); HEMATOCRIT 33.3 % (36-48); HEMOGLOBIN 10.7 g/dL (12.0-16.0); LYMPHOCYTES # (AUTO) 2.3 K/uL (2.5-16.5); LYMPHOCYTES % (AUTO) 35.2 % (20.5-51.1); MEAN CORPUSCULAR HEMOGLOBIN 27 pg (27-31); MEAN CORPUSCULAR HGB CONC 32 g/dL (33-37); MEAN CORPUSCULAR VOLUME 84.7 fL (80-94); MONOCYTES # (AUTO) 0.4 K/uL (0.8-1.0); NEUTROPHILS # (AUTO) 3.6 K/uL (1.8-7.7); NEUTROPHILS % (AUTO) 54.5 % (42.2-75.2); PLATELET COUNT (AUTO) 330 K/uL (140-450); RED BLOOD CELL COUNT(AUTO) 3.93 MIL/uL (4.20-5.40); RED CELL DISTRIBUTION WIDTH 14.1 % (11.6-13.7); WHITE BLOOD COUNT (AUTO) 6.6 K/uL (4.8-10.8)
[2023-07-01 17:46] LABS: ALANINE AMINOTRANSFERASE 15 U/L (12-78); ALBUMIN 3.1 g/dL (3.4-5.0); ALKALINE PHOSPHATASE 77 U/L (50-136); ASPARTATE AMINOTRANSFERASE 15 U/L (15-37); CALCIUM 8.5 mg/dL (8.5-10.1); CARBON DIOXIDE 27.3 mmol/L (21-32); CHLORIDE 104 mmol/L (98-107); CREATININE 1.3 mg/dL (0.6-1.3); GLUCOSE 89 mg/dL (74-106); POTASSIUM 3.3 mmol/L (3.5-5.1); SODIUM SERUM 141 mmol/L (136-145); TOTAL BILIRUBIN 0.2 mg/dL (0.0-1.0); TOTAL PROTEIN, SERUM 7.3 g/dL (6.4-8.2); UREA NITROGEN, BLOOD 21 mg/dL (7-18)
[2023-07-01 17:50] LABS: AMYLASE 98 U/L (25-115); LIPASE 67 U/L (73-393)
[2023-07-01 18:16] LABS: APPEARANCE,URINE SL CLOUDY (CLEAR); BILIRUBIN,URINE NEGATIVE (NEGATIVE); BLOOD, URINE NEGATIVE (NEGATIVE); COLOR,URINE YELLOW (YELLOW); LEUKOCYTE ESTERASE ,URINE NEGATIVE (NEGATIVE); NITRITE, URINE NEGATIVE (NEGATIVE); PROTEIN,URINE NEGATIVE (NEGATIVE); UGLUCOSE NEGATIVE (NEGATIVE); UROBILINOGEN,URINE 0.2 EU/dL (0.2 - 1)
[2023-07-01] MEDS: metroNIDAZOLE 500 MG/NS PREMIX 100 ML IV SCH (21:16)
[2023-07-01 21:31] VITALS: O2SAT 98
[2023-07-01 21:53] VITALS: BP 189/98; PULSE 66; RESP 17; TEMP 97.7; O2SAT 97
[2023-07-01] MEDS ORDERED: hydrALAZINE 10 MG TAB PO SCH (23:20)
[2023-07-02] VITALS: BP 141/62; PULSE 54; PULSE 56; RESP 16; TEMP 97.9; O2SAT 97
[2023-07-02 04:00] VITALS: BP 148/81; PULSE 56; PULSE 58; RESP 16; TEMP 97.9; O2SAT 95
[2023-07-02] MEDS: metroNIDAZOLE 500 MG/NS PREMIX 100 ML IV SCH ×3 (04:48→21:00)
[2023-07-02 08:00] VITALS: BP 141/68; PULSE 18; PULSE 56; PULSE 59; RESP 18; TEMP 97.1; O2SAT 96
[2023-07-02] MEDS ORDERED: ACETAMINOPHEN EXTRA STRENGTH 500 MG TAB PO PRN (11:25)
[2023-07-02 12:00] VITALS: BP 152/71; PULSE 56; PULSE 57; RESP 18; TEMP 97.1; O2SAT 97
[2023-07-02 16:00] VITALS: BP 157/64; PULSE 64; PULSE 66; RESP 18; TEMP 97.3; O2SAT 99
[2023-07-02] MEDS ORDERED: DOCUSATE SODIUM 100 MG GELCAP PO PRN (16:40)
[2023-07-02] MEDS ORDERED: ONDANSETRON 4 MG/2 ML VIAL IVP PRN (16:40)
[2023-07-02] MEDS ORDERED: ZOLPIDEM 10 MG TAB PO PRN (16:40)
[2023-07-02] MEDS ORDERED: ACETAMINOPHEN 325 MG TAB PO PRN (16:40)
[2023-07-02] MEDS: NACL 0.9% 1,000 ML IV SCH (16:50)
[2023-07-02] MEDS ORDERED: PANTOPRAZOLE 40 MG TABEC PO SCH (17:20)
[2023-07-02] MEDS: SUCRALFATE 1 GM TAB PO SCH ×2 (18:19→21:32)
[2023-07-02 20:00] VITALS: BP 140/65; PULSE 16; PULSE 67; PULSE 68; RESP 16; TEMP 97.8; O2SAT 100
[2023-07-02] MEDS ORDERED: MELATONIN 3 MG TAB PO PRN (21:00)
[2023-07-02] MEDS ORDERED: MELATONIN 3 MG TAB PO ONE (21:00)
[2023-07-02] MEDS: PREGABALIN 50 MG CAP PO SCH (21:32)
[2023-07-03] VITALS: BP 170/80; PULSE 75; RESP 17; TEMP 97.2; O2SAT 100
[2023-07-03] MEDS ORDERED: hydrALAZINE 10 MG TAB PO PRN (00:10)
[2023-07-03] MEDS: HYDROcodone/APAP 5/325 MG 1 TAB TAB PO PRN (00:50)
[2023-07-03] MEDS: POTASSIUM CHLORIDE 10 MEQ TABER PO PRN (01:33)
[2023-07-03 04:00] VITALS: BP 135/75; PULSE 60; RESP 16; TEMP 96.7; O2SAT 100
[2023-07-03] MEDS: metroNIDAZOLE 500 MG/NS PREMIX 100 ML IV SCH ×3 (05:00→21:16)
[2023-07-03] MEDS: NACL 0.9% 1,000 ML IV SCH ×3 (05:20→21:15)
[2023-07-03] MEDS: PREGABALIN 50 MG CAP PO SCH ×3 (05:42→21:16)
[2023-07-03 06:20] LABS: BASOPHILS # (AUTO) 0.1 K/uL (0.00-0.22); BASOPHILS % (AUTO) 1.4 % (0.0-2.0); EOSINOPHILS # (AUTO) 0.2 K/uL (0-0.4); EOSINOPHILS % (AUTO) 2.9 % (0.0-4.0); HEMATOCRIT 31.5 % (36-48); HEMOGLOBIN 10.2 g/dL (12.0-16.0); MEAN CORPUSCULAR HEMOGLOBIN 27 pg (27-31); MEAN CORPUSCULAR HGB CONC 33 g/dL (33-37); MEAN CORPUSCULAR VOLUME 84.4 fL (80-94); MONOCYTES # (AUTO) 0.4 K/uL (0.8-1.0); MONOCYTES % (AUTO) 7.2 % (1.7-9.3); NEUTROPHILS # (AUTO) 2.9 K/uL (1.8-7.7); NEUTROPHILS % (AUTO) 52.5 % (42.2-75.2); PLATELET COUNT (AUTO) 306 K/uL (140-450); RED BLOOD CELL COUNT(AUTO) 3.73 MIL/uL (4.20-5.40); RED CELL DISTRIBUTION WIDTH 13.6 % (11.6-13.7); WHITE BLOOD COUNT (AUTO) 5.6 K/uL (4.8-10.8)
[2023-07-03 06:36] LABS: ANION GAP 9.1 (8-16); CALCIUM 8.8 mg/dL (8.5-10.1); CARBON DIOXIDE 28.5 mmol/L (21-32); CHLORIDE 105 mmol/L (98-107); GLUCOSE 87 mg/dL (74-106); POTASSIUM 3.6 mmol/L (3.5-5.1); SODIUM SERUM 139 mmol/L (136-145); UREA NITROGEN, BLOOD 10 mg/dL (7-18)
[2023-07-03 08:00] VITALS: BP 141/75; PULSE 18; PULSE 60; PULSE 62; RESP 18; TEMP 98.8; O2SAT 98
[2023-07-03] MEDS: SUCRALFATE 1 GM TAB PO SCH ×4 (08:27→21:16)
[2023-07-03] MEDS: FOLIC ACID 1 MG TAB PO SCH (08:27)
[2023-07-03] MEDS: PANTOPRAZOLE 40 MG TABEC PO SCH (08:27)
[2023-07-03] MEDS: lisinopriL 20 MG TAB PO SCH (08:28)
[2023-07-03] MEDS: FERROUS SULFATE 325 MG TABEC PO SCH (08:28)
[2023-07-03 12:00] VITALS: BP 124/82; PULSE 65; RESP 17; TEMP 98; O2SAT 100
[2023-07-03] MEDS: MAG SULF 2000 MG/WATER PREMIX 50 ML IV PRN (15:26)
[2023-07-03 16:00] VITALS: BP 178/83; PULSE 66; PULSE 68; RESP 18; TEMP 97.1; O2SAT 100
[2023-07-03] MEDS: MORPHINE SULFATE 2 MG/ML SYR IVP PRN (16:23)
[2023-07-03 20:00] VITALS: BP 176/85; PULSE 18; PULSE 63; RESP 18; TEMP 97.4; O2SAT 95
[2023-07-04] VITALS (8 sets, daily range): BP systolic 153–173; BP diastolic 70–80; PULSE 20–75; RESP 17–20; TEMP 97.4–98.4; O2SAT 94–100
[2023-07-04] MEDS: PREGABALIN 50 MG CAP PO SCH ×3 (04:21→20:08)
[2023-07-04] MEDS: metroNIDAZOLE 500 MG/NS PREMIX 100 ML IV SCH ×3 (04:22→20:07)
[2023-07-04] MEDS: MORPHINE SULFATE 2 MG/ML SYR IVP PRN (04:23)
[2023-07-04 06:51] LABS: BASOPHILS % (AUTO) 0.8 % (0.0-2.0); EOSINOPHILS # (AUTO) 0.1 K/uL (0-0.4); EOSINOPHILS % (AUTO) 2.5 % (0.0-4.0); HEMATOCRIT 32.9 % (36-48); HEMOGLOBIN 10.7 g/dL (12.0-16.0); LYMPHOCYTES # (AUTO) 1.4 K/uL (2.5-16.5); LYMPHOCYTES % (AUTO) 25.1 % (20.5-51.1); MEAN CORPUSCULAR HEMOGLOBIN 28 pg (27-31); MEAN CORPUSCULAR HGB CONC 33 g/dL (33-37); MEAN CORPUSCULAR VOLUME 84.3 fL (80-94); MONOCYTES # (AUTO) 0.3 K/uL (0.8-1.0); MONOCYTES % (AUTO) 6.1 % (1.7-9.3); NEUTROPHILS # (AUTO) 3.6 K/uL (1.8-7.7); NEUTROPHILS % (AUTO) 65.5 % (42.2-75.2); PLATELET COUNT (AUTO) 318 K/uL (140-450); RED CELL DISTRIBUTION WIDTH 13.9 % (11.6-13.7); WHITE BLOOD COUNT (AUTO) 5.6 K/uL (4.8-10.8)
[2023-07-04 06:53] LABS: ANION GAP 11.2 (8-16); CALCIUM 8.8 mg/dL (8.5-10.1); CARBON DIOXIDE 26.2 mmol/L (21-32); CHLORIDE 106 mmol/L (98-107); GLUCOSE 106 mg/dL (74-106); POTASSIUM 3.4 mmol/L (3.5-5.1); SODIUM SERUM 140 mmol/L (136-145); UREA NITROGEN, BLOOD 9 mg/dL (7-18)
[2023-07-04] MEDS: FERROUS SULFATE 325 MG TABEC PO SCH (08:59)
[2023-07-04] MEDS: FOLIC ACID 1 MG TAB PO SCH (08:59)
[2023-07-04] MEDS: PANTOPRAZOLE 40 MG TABEC PO SCH (08:59)
[2023-07-04] MEDS: lisinopriL 20 MG TAB PO SCH (08:59)
[2023-07-04] MEDS: SUCRALFATE 1 GM TAB PO SCH ×4 (08:59→20:07)
[2023-07-04] MEDS: POTASSIUM CHLORIDE 10 MEQ TABER PO PRN (10:49)
[2023-07-04] MEDS: NACL 0.9% 1,000 ML IV SCH ×2 (18:33→20:29)
[2023-07-04] MEDS: hydrALAZINE 10 MG TAB PO PRN (21:01)
[2023-07-05] VITALS (7 sets, daily range): BP systolic 135–191; BP diastolic 69–90; PULSE 65–80; RESP 18–20; TEMP 97.1–98.1; O2SAT 96–100
[2023-07-05] MEDS: metroNIDAZOLE 500 MG/NS PREMIX 100 ML IV SCH ×3 (04:50→21:26)
[2023-07-05] MEDS: hydrALAZINE 10 MG TAB PO PRN (04:50)
[2023-07-05] MEDS: PREGABALIN 50 MG CAP PO SCH (04:53)
[2023-07-05 06:40] LABS: ANION GAP 12.9 (8-16); CALCIUM 8.7 mg/dL (8.5-10.1); CARBON DIOXIDE 24.6 mmol/L (21-32); CHLORIDE 106 mmol/L (98-107); CREATININE 0.9 mg/dL (0.6-1.3); GLUCOSE 102 mg/dL (74-106); POTASSIUM 3.5 mmol/L (3.5-5.1); SODIUM SERUM 140 mmol/L (136-145); UREA NITROGEN, BLOOD 5 mg/dL (7-18)
[2023-07-05 06:47] LABS: BASOPHILS # (AUTO) 0.1 K/uL (0.00-0.22); BASOPHILS % (AUTO) 0.8 % (0.0-2.0); EOSINOPHILS # (AUTO) 0.2 K/uL (0-0.4); EOSINOPHILS % (AUTO) 3.5 % (0.0-4.0); HEMATOCRIT 33.8 % (36-48); HEMOGLOBIN 10.9 g/dL (12.0-16.0); LYMPHOCYTES % (AUTO) 29.5 % (20.5-51.1); MEAN CORPUSCULAR HEMOGLOBIN 27 pg (27-31); MEAN CORPUSCULAR HGB CONC 32 g/dL (33-37); MEAN CORPUSCULAR VOLUME 84.7 fL (80-94); MONOCYTES # (AUTO) 0.4 K/uL (0.8-1.0); MONOCYTES % (AUTO) 6.5 % (1.7-9.3); NEUTROPHILS % (AUTO) 59.7 % (42.2-75.2); PLATELET COUNT (AUTO) 293 K/uL (140-450); RED BLOOD CELL COUNT(AUTO) 3.99 MIL/uL (4.20-5.40); RED CELL DISTRIBUTION WIDTH 13.9 % (11.6-13.7); WHITE BLOOD COUNT (AUTO) 6.7 K/uL (4.8-10.8)
[2023-07-05] MEDS ORDERED: MIDAZOLAM 2 MG/2 ML VIAL ONE (07:22)
[2023-07-05] MEDS ORDERED: fentaNYL citrate 0.05 MG/ML VIAL ONE (07:23)
[2023-07-05] MEDS: PANTOPRAZOLE 40 MG TABEC PO SCH ×2 (07:44→07:46)
[2023-07-05] MEDS: MAG SULF 2000 MG/WATER PREMIX 50 ML IV PRN (07:45)
[2023-07-05] MEDS: FERROUS SULFATE 325 MG TABEC PO SCH (07:46)
[2023-07-05] MEDS: FOLIC ACID 1 MG TAB PO SCH (07:46)
[2023-07-05] MEDS: SUCRALFATE 1 GM TAB PO SCH (07:46)
[2023-07-05] MEDS: lisinopriL 20 MG TAB PO SCH (07:46)
[2023-07-05] MEDS ORDERED: MIDAZOLAM 2 MG/2 ML VIAL IVP ONE (09:05)
[2023-07-05] MEDS: HYDROcodone/APAP 5/325 MG 1 TAB TAB PO PRN (11:57)
[2023-07-05] MEDS: MORPHINE SULFATE 2 MG/ML SYR IVP PRN ×2 (13:14→22:30)
[2023-07-05] MEDS: NACL 0.9% 1,000 ML IV SCH (18:55)
[2023-07-05] MEDS: hydrALAZINE 20 MG/ML VIAL IVP PRN (18:56)
[2023-07-06 04:00] VITALS: BP 186/97; PULSE 97; RESP 18; TEMP 98.7; O2SAT 100
[2023-07-06] MEDS: MORPHINE SULFATE 2 MG/ML SYR IVP PRN ×2 (04:49→12:31)
[2023-07-06] MEDS: hydrALAZINE 20 MG/ML VIAL IVP PRN (04:49)
[2023-07-06] MEDS: metroNIDAZOLE 500 MG/NS PREMIX 100 ML IV SCH ×2 (04:50→12:21)
[2023-07-06 05:49] VITALS: BP 155/73; PULSE 83
[2023-07-06] MEDS: PREGABALIN 50 MG CAP PO SCH ×2 (06:15→13:26)
[2023-07-06 07:00] LABS: BASOPHILS % (AUTO) 0.1 % (0.0-2.0); EOSINOPHILS % (AUTO) 0.1 % (0.0-4.0); HEMATOCRIT 33.2 % (36-48); HEMOGLOBIN 10.8 g/dL (12.0-16.0); LYMPHOCYTES # (AUTO) 0.6 K/uL (2.5-16.5); LYMPHOCYTES % (AUTO) 6.1 % (20.5-51.1); MEAN CORPUSCULAR HEMOGLOBIN 27 pg (27-31); MEAN CORPUSCULAR HGB CONC 33 g/dL (33-37); MEAN CORPUSCULAR VOLUME 84.2 fL (80-94); MONOCYTES # (AUTO) 0.3 K/uL (0.8-1.0); MONOCYTES % (AUTO) 3.6 % (1.7-9.3); NEUTROPHILS # (AUTO) 8.5 K/uL (1.8-7.7); NEUTROPHILS % (AUTO) 90.1 % (42.2-75.2); PLATELET COUNT (AUTO) 348 K/uL (140-450); RED BLOOD CELL COUNT(AUTO) 3.94 MIL/uL (4.20-5.40); RED CELL DISTRIBUTION WIDTH 13.8 % (11.6-13.7); WHITE BLOOD COUNT (AUTO) 9.4 K/uL (4.8-10.8)
[2023-07-06 07:27] LABS: ANION GAP 13.9 (8-16); CALCIUM 8.8 mg/dL (8.5-10.1); CARBON DIOXIDE 22.4 mmol/L (21-32); CHLORIDE 104 mmol/L (98-107); CREATININE 0.9 mg/dL (0.6-1.3); GLUCOSE 162 mg/dL (74-106); POTASSIUM 3.3 mmol/L (3.5-5.1); SODIUM SERUM 137 mmol/L (136-145); UREA NITROGEN, BLOOD 5 mg/dL (7-18)
[2023-07-06] MEDS ORDERED: LISI20TA29 PO (07:55)
[2023-07-06 08:00] VITALS: BP 152/71; PULSE 84; PULSE 86; RESP 18; TEMP 98.1; O2SAT 100
[2023-07-06] MEDS: SUCRALFATE 1 GM TAB PO SCH ×3 (09:00→13:25)
[2023-07-06 09:01] VITALS: RESP 18; O2SAT 100
[2023-07-06] MEDS: PANTOPRAZOLE 40 MG TABEC PO SCH (09:03)
[2023-07-06] MEDS: FOLIC ACID 1 MG TAB PO SCH (09:04)
[2023-07-06] MEDS: FERROUS SULFATE 325 MG TABEC PO SCH (09:04)
[2023-07-06] MEDS: lisinopriL 20 MG TAB PO SCH (09:04)
[2023-07-06] MEDS: POTASSIUM CHLORIDE 10 MEQ TABER PO PRN (10:10)
[2023-07-06 12:30] VITALS: BP 138/69; PULSE 85; RESP 18; TEMP 98.5; O2SAT 100
== END 2023-07-06 14:35 | disposition home health service (06) | DRG 392 ==
LOC: MED 15:28 → MTU 20:25
PROVIDERS: ADMIT Family Medicine; ATTEND Family Medicine
PROC: 05HY33Z Insertion of Infusion Device into Upper Vein, Percutaneous Approach (ICD-10-PCS; 2023-07-05)
PROC: B54MZZA Ultrasonography of Right Upper Extremity Veins, Guidance (ICD-10-PCS; 2023-07-05)
PROC: 0DJ08ZZ Inspection of Upper Intestinal Tract, Via Natural or Artificial Opening Endoscopic (ICD-10-PCS; principal; 2023-07-05 07:00)
DX: K29.70 Gastritis, unspecified, without bleeding (principal); E44.0 Moderate protein-calorie malnutrition; E87.6 Hypokalemia; R42 Dizziness and giddiness; I10 Essential (primary) hypertension; G47.00 Insomnia, unspecified; F03.90 Unspecified dementia, unspecified severity, without behavioral disturbance, psychotic disturbance, mood disturbance, and anxiety; K43.9 Ventral hernia without obstruction or gangrene; Z90.49 Acquired absence of other specified parts of digestive tract; Z90.710 Acquired absence of both cervix and uterus; Z68.25 Body mass index [BMI] 25.0-25.9, adult
CPT/HCPCS: 36415; 70450; 71275; 80048; 80053; 81003; 82150; 83036; 83690; 83735; 83880; 84484; 85025; 87081; 96374; 96375; 99285; J0360; J2250; J2270; J2405; J3010; J3475; J3490; J7030; Q9967

== ENCOUNTER 2023-07-28 14:33 | Emergency (ER) | payer OTHER, MEDICAID ==
[~2023-07-28] VITALS: Ht 167.6 cm; Wt 59.0 kg
[~2023-07-28 14:33] MED LIST changes: -APIX5TAB PO; -PANT40EC PO
[2023-07-28 14:46] VITALS: BP 97/56; PULSE 82; RESP 20; TEMP 97.6; O2SAT 97
[2023-07-28] MEDS ORDERED: NACL 0.9% 1,000 ML IV ONE (15:10)
[2023-07-28] MEDS ORDERED: MORPHINE SULFATE 4 MG/ML SYR IVP ONE (15:10)
[2023-07-28] MEDS ORDERED: ONDANSETRON 4 MG/2 ML VIAL IVP ONE (15:10)
[2023-07-28 15:50] LABS: BASOPHILS # (AUTO) 0.1 K/uL (0.00-0.22); BASOPHILS % (AUTO) 1.1 % (0.0-2.0); EOSINOPHILS # (AUTO) 0.2 K/uL (0-0.4); EOSINOPHILS % (AUTO) 2.8 % (0.0-4.0); HEMATOCRIT 34.3 % (36-48); HEMOGLOBIN 11.1 g/dL (12.0-16.0); LYMPHOCYTES # (AUTO) 2.2 K/uL (2.5-16.5); LYMPHOCYTES % (AUTO) 40.1 % (20.5-51.1); MEAN CORPUSCULAR HEMOGLOBIN 28 pg (27-31); MEAN CORPUSCULAR HGB CONC 32 g/dL (33-37); MEAN CORPUSCULAR VOLUME 85.7 fL (80-94); MONOCYTES # (AUTO) 0.3 K/uL (0.8-1.0); MONOCYTES % (AUTO) 5.8 % (1.7-9.3); NEUTROPHILS # (AUTO) 2.8 K/uL (1.8-7.7); NEUTROPHILS % (AUTO) 50.2 % (42.2-75.2); PLATELET COUNT (AUTO) 366 K/uL (140-450); RED BLOOD CELL COUNT(AUTO) 4.01 MIL/uL (4.20-5.40); RED CELL DISTRIBUTION WIDTH 14.5 % (11.6-13.7); WHITE BLOOD COUNT (AUTO) 5.6 K/uL (4.8-10.8)
[2023-07-28 16:17] LABS: ALANINE AMINOTRANSFERASE 12 U/L (12-78); ALBUMIN 3.1 g/dL (3.4-5.0); ALKALINE PHOSPHATASE 71 U/L (50-136); ANION GAP 12.1 (8-16); ASPARTATE AMINOTRANSFERASE 14 U/L (15-37); CALCIUM 8.5 mg/dL (8.5-10.1); CARBON DIOXIDE 25.3 mmol/L (21-32); CHLORIDE 106 mmol/L (98-107); CREATININE 1.6 mg/dL (0.6-1.3); GLUCOSE 75 mg/dL (74-106); LIPASE 29 U/L (16-77); POTASSIUM 3.4 mmol/L (3.5-5.1); SODIUM SERUM 140 mmol/L (136-145); TOTAL BILIRUBIN 0.2 mg/dL (0.0-1.0); TOTAL PROTEIN, SERUM 7.1 g/dL (6.4-8.2); UREA NITROGEN, BLOOD 28 mg/dL (7-18)
[2023-07-28] MEDS ORDERED: DICYCLOMINE 20 MG/2 ML VIAL IM ONE (18:25)
[2023-07-28 18:48] LABS: APPEARANCE,URINE CLEAR (CLEAR); BILIRUBIN,URINE NEGATIVE (NEGATIVE); BLOOD, URINE NEGATIVE (NEGATIVE); COLOR,URINE YELLOW (YELLOW); LEUKOCYTE ESTERASE ,URINE NEGATIVE (NEGATIVE); NITRITE, URINE POSITIVE (NEGATIVE); PH,URINE 5.5 (5.0-9.0); PROTEIN,URINE TRACE (NEGATIVE); UGLUCOSE NEGATIVE (NEGATIVE); UROBILINOGEN,URINE 0.2 EU/dL (0.2 - 1)
[2023-07-28] MEDS ORDERED: ACET-8905 PO (19:21)
[2023-07-28] MEDS ORDERED: BEN10 PO (19:21)
[2023-07-28] MEDS ORDERED: CEPH-588 PO (19:21)
[2023-07-28] MEDS ORDERED: HYDROcodone/APAP 5/325 MG 1 TAB TAB PO ONE (19:35)
[2023-07-28] MEDS ORDERED: cephALEXin 500 MG CAP PO ONE (19:35)
[2023-07-28 20:01] VITALS: BP 160/73; PULSE 61; RESP 16; TEMP 97.9; O2SAT 98
== END 2023-07-28 20:01 | disposition home or self-care (01) ==
LOC: MED 14:33
DX: N39.0 Urinary tract infection, site not specified (principal); I10 Essential (primary) hypertension; F03.90 Unspecified dementia, unspecified severity, without behavioral disturbance, psychotic disturbance, mood disturbance, and anxiety; Z86.73 Personal history of transient ischemic attack (TIA), and cerebral infarction without residual deficits; Z90.49 Acquired absence of other specified parts of digestive tract; Z98.890 Other specified postprocedural states; Z79.899 Other long term (current) drug therapy; Z79.2 Long term (current) use of antibiotics
CPT/HCPCS: 36415; 70450; 70496; 74177; 80053; 81003; 83605; 83690; 84484; 85025; 87040; 93005; 96361; 96372; 96374; 96375; 99285; J0500; J2270; J2405; J7030; Q9967

== ENCOUNTER 2023-08-27 14:01 | Inpatient (IN) | payer OTHER ==
[~2023-08-27] VITALS: Ht 170.2 cm; Wt 74.4 kg
[~2023-08-27 14:01] MED LIST changes: +ACET-8905 PO; +BEN10 PO; +CEPH-588 PO
[2023-08-27 14:10] VITALS: BP 118/67; PULSE 59; RESP 20; TEMP 98.4; O2SAT 100
[2023-08-27 15:00] LABS: BASOPHILS % (AUTO) 0.4 % (0.0-2.0); EOSINOPHILS # (AUTO) 0.3 K/uL (0-0.4); EOSINOPHILS % (AUTO) 4.6 % (0.0-4.0); HEMATOCRIT 33.1 % (36-48); HEMOGLOBIN 10.6 g/dL (12.0-16.0); LYMPHOCYTES # (AUTO) 2.2 K/uL (2.5-16.5); LYMPHOCYTES % (AUTO) 37.1 % (20.5-51.1); MEAN CORPUSCULAR HEMOGLOBIN 27 pg (27-31); MEAN CORPUSCULAR HGB CONC 32 g/dL (33-37); MONOCYTES # (AUTO) 0.3 K/uL (0.8-1.0); MONOCYTES % (AUTO) 5.5 % (1.7-9.3); NEUTROPHILS % (AUTO) 52.4 % (42.2-75.2); PLATELET COUNT (AUTO) 312 K/uL (140-450); RED BLOOD CELL COUNT(AUTO) 3.89 MIL/uL (4.20-5.40); RED CELL DISTRIBUTION WIDTH 14.3 % (11.6-13.7); WHITE BLOOD COUNT (AUTO) 5.8 K/uL (4.8-10.8)
[2023-08-27 15:15] LABS: INR 0.95 (0.8-1.2); PARTIAL THROMBOPLASTIN TIME 25.6 secs (22-35.6)
[2023-08-27 15:22] LABS: ALANINE AMINOTRANSFERASE 30 U/L (12-78); ALBUMIN 3.1 g/dL (3.4-5.0); ALKALINE PHOSPHATASE 79 U/L (50-136); ASPARTATE AMINOTRANSFERASE 21 U/L (15-37); CALCIUM 8.1 mg/dL (8.5-10.1); CARBON DIOXIDE 27.1 mmol/L (21-32); CHLORIDE 104 mmol/L (98-107); CREATININE 1.6 mg/dL (0.6-1.3); GLUCOSE 101 mg/dL (74-106); POTASSIUM 4.1 mmol/L (3.5-5.1); SODIUM SERUM 138 mmol/L (136-145); TOTAL BILIRUBIN 0.1 mg/dL (0.0-1.0); TOTAL PROTEIN, SERUM 7.4 g/dL (6.4-8.2); UREA NITROGEN, BLOOD 24 mg/dL (7-18)
[2023-08-27] MEDS ORDERED: NACL 0.9% 1,000 ML IV ONE (16:10)
[2023-08-27] MEDS ORDERED: ASPIRIN 81 MG TAB.CHEW PO ONE (16:30)
[2023-08-27 18:23] VITALS: O2SAT 98
[2023-08-27] MEDS ORDERED: MORPHINE SULFATE 2 MG/ML SYR IVP STA (18:36)
[2023-08-27] MEDS ORDERED: MORPHINE SULFATE 2 MG/ML SYR IVP PRN (19:25)
[2023-08-27] MEDS ORDERED: ONDANSETRON 4 MG/2 ML VIAL IVP PRN (19:25)
[2023-08-27] MEDS ORDERED: HYDR-3293 PO (19:34)
[2023-08-27] MEDS ORDERED: GABA300C PO (19:34)
[2023-08-27] MEDS ORDERED: APIX2.5 PO (19:34)
[2023-08-27] MEDS ORDERED: METO50TE2 PO (19:34)
[2023-08-27] MEDS ORDERED: TRAZ-343 PO (19:34)
[2023-08-27] MEDS ORDERED: FAMO-368 PO (19:34)
[2023-08-27] MEDS ORDERED: MECL-303 PO (19:34)
[2023-08-27 19:37] VITALS: O2SAT 98
[2023-08-27] MEDS: NACL 0.9% 1,000 ML IV SCH (23:32)
[2023-08-27] MEDS: ACETAMINOPHEN 325 MG TAB PO PRN (23:56)
[2023-08-28] VITALS: O2SAT 98
[2023-08-28 03:30] VITALS: O2SAT 100
[2023-08-28] MEDS: HYDROcodone/APAP 5/325 MG 1 TAB TAB PO PRN (06:03)
[2023-08-28 07:27] LABS: BASOPHILS # (AUTO) 0.1 K/uL (0.00-0.22); BASOPHILS % (AUTO) 1.2 % (0.0-2.0); EOSINOPHILS # (AUTO) 0.2 K/uL (0-0.4); EOSINOPHILS % (AUTO) 3.5 % (0.0-4.0); HEMATOCRIT 32.7 % (36-48); HEMOGLOBIN 10.6 g/dL (12.0-16.0); LYMPHOCYTES # (AUTO) 1.5 K/uL (2.5-16.5); LYMPHOCYTES % (AUTO) 29.6 % (20.5-51.1); MEAN CORPUSCULAR HEMOGLOBIN 28 pg (27-31); MEAN CORPUSCULAR HGB CONC 32 g/dL (33-37); MEAN CORPUSCULAR VOLUME 85.5 fL (80-94); MONOCYTES # (AUTO) 0.3 K/uL (0.8-1.0); NEUTROPHILS % (AUTO) 59.7 % (42.2-75.2); PLATELET COUNT (AUTO) 289 K/uL (140-450); RED BLOOD CELL COUNT(AUTO) 3.83 MIL/uL (4.20-5.40); RED CELL DISTRIBUTION WIDTH 14.2 % (11.6-13.7)
[2023-08-28 07:54] LABS: ALANINE AMINOTRANSFERASE 24 U/L (12-78); ALBUMIN 3.1 g/dL (3.4-5.0); ALKALINE PHOSPHATASE 75 U/L (50-136); ANION GAP 11.7 (8-16); ASPARTATE AMINOTRANSFERASE 18 U/L (15-37); CALCIUM 8.1 mg/dL (8.5-10.1); CARBON DIOXIDE 26.1 mmol/L (21-32); CHLORIDE 105 mmol/L (98-107); CREATININE 1.3 mg/dL (0.6-1.3); GLUCOSE 86 mg/dL (74-106); MAGNESIUM 1.7 mg/dL (1.8-2.4); PHOSPHORUS 3.5 mg/dL (2.5-4.9); POTASSIUM 3.8 mmol/L (3.5-5.1); SODIUM SERUM 139 mmol/L (136-145); TOTAL BILIRUBIN 0.4 mg/dL (0.0-1.0); TOTAL PROTEIN, SERUM 7.3 g/dL (6.4-8.2); UREA NITROGEN, BLOOD 18 mg/dL (7-18)
[2023-08-28 08:45] VITALS: BP 151/56; PULSE 63; PULSE 70; RESP 14; RESP 18; TEMP 97.4; O2SAT 98
[2023-08-28] MEDS: MAGNESIUM OXIDE 400 MG TAB PO PRN (10:06)
[2023-08-28] MEDS: NACL 0.9% 1,000 ML IV SCH ×2 (10:06→22:05)
[2023-08-28] MEDS: ASPIRIN 81 MG TAB.CHEW PO SCH (10:06)
[2023-08-28] MEDS ORDERED: MECLIZINE 25 MG TAB PO PRN (10:55)
[2023-08-28 11:13] LABS: CHOL/HDL RATIO 3.2 (1-4.5)
[2023-08-28 12:00] VITALS: BP 181/71; PULSE 61; PULSE 63; RESP 18; TEMP 96.8; O2SAT 99
[2023-08-28] MEDS: GABAPENTIN 300 MG CAP PO SCH ×2 (13:22→17:18)
[2023-08-28] MEDS: hydrALAZINE 20 MG/ML VIAL IVP PRN ×2 (13:27→23:07)
[2023-08-28 16:00] VITALS: BP 153/72; PULSE 72; PULSE 77; RESP 18; TEMP 97.9; O2SAT 97
[2023-08-28 20:00] VITALS: BP 178/77; PULSE 77; PULSE 84; RESP 18; TEMP 97.9; O2SAT 97
[2023-08-28] MEDS: METOPROLOL SUCCINATE 50 MG TABER PO SCH (20:17)
[2023-08-28] MEDS: ACETAMINOPHEN 325 MG TAB PO PRN (20:21)
[2023-08-29] VITALS: BP 172/80; PULSE 72; PULSE 74; RESP 18; TEMP 98.1; O2SAT 97
[2023-08-29 04:00] VITALS: BP 164/68; PULSE 72; PULSE 73; RESP 18; TEMP 97.2; O2SAT 97
[2023-08-29] MEDS: HYDROcodone/APAP 5/325 MG 1 TAB TAB PO PRN (04:02)
[2023-08-29 06:33] LABS: BASOPHILS # (AUTO) 0.1 K/uL (0.00-0.22); BASOPHILS % (AUTO) 0.9 % (0.0-2.0); EOSINOPHILS # (AUTO) 0.1 K/uL (0-0.4); EOSINOPHILS % (AUTO) 1.8 % (0.0-4.0); HEMATOCRIT 31.5 % (36-48); HEMOGLOBIN 10.3 g/dL (12.0-16.0); LYMPHOCYTES # (AUTO) 1.6 K/uL (2.5-16.5); LYMPHOCYTES % (AUTO) 24.6 % (20.5-51.1); MEAN CORPUSCULAR HEMOGLOBIN 28 pg (27-31); MEAN CORPUSCULAR HGB CONC 33 g/dL (33-37); MEAN CORPUSCULAR VOLUME 84.3 fL (80-94); MONOCYTES # (AUTO) 0.3 K/uL (0.8-1.0); MONOCYTES % (AUTO) 5.3 % (1.7-9.3); NEUTROPHILS # (AUTO) 4.4 K/uL (1.8-7.7); NEUTROPHILS % (AUTO) 67.4 % (42.2-75.2); PLATELET COUNT (AUTO) 303 K/uL (140-450); RED BLOOD CELL COUNT(AUTO) 3.74 MIL/uL (4.20-5.40); RED CELL DISTRIBUTION WIDTH 14.2 % (11.6-13.7); WHITE BLOOD COUNT (AUTO) 6.5 K/uL (4.8-10.8)
[2023-08-29 07:18] LABS: ALANINE AMINOTRANSFERASE 23 U/L (12-78); ALBUMIN 3.1 g/dL (3.4-5.0); ALKALINE PHOSPHATASE 74 U/L (50-136); ANION GAP 12.5 (8-16); ASPARTATE AMINOTRANSFERASE 20 U/L (15-37); CALCIUM 8.6 mg/dL (8.5-10.1); CARBON DIOXIDE 25.2 mmol/L (21-32); CHLORIDE 103 mmol/L (98-107); CREATININE 1.1 mg/dL (0.6-1.3); GLUCOSE 107 mg/dL (74-106); POTASSIUM 3.7 mmol/L (3.5-5.1); SODIUM SERUM 137 mmol/L (136-145); TOTAL BILIRUBIN 0.5 mg/dL (0.0-1.0); TOTAL PROTEIN, SERUM 7.1 g/dL (6.4-8.2); UREA NITROGEN, BLOOD 13 mg/dL (7-18)
[2023-08-29 08:00] VITALS: BP 134/74; PULSE 64; RESP 16; TEMP 98.7; O2SAT 97
[2023-08-29] MEDS: GABAPENTIN 300 MG CAP PO SCH ×3 (08:45→17:50)
[2023-08-29] MEDS: traZODone 50 MG TAB PO SCH (08:46)
[2023-08-29] MEDS: ASPIRIN 81 MG TAB.CHEW PO SCH (08:46)
[2023-08-29] MEDS: METOPROLOL SUCCINATE 50 MG TABER PO SCH ×2 (08:47→22:32)
[2023-08-29] MEDS: APIXABAN 2.5 MG TAB PO SCH (08:51)
[2023-08-29] MEDS ORDERED: MAG SULF 2000 MG/WATER PREMIX 50 ML IV SCH (10:12)
[2023-08-29] MEDS ORDERED: hydroCHLOROthiazide 25 MG TAB PO SCH (10:15)
[2023-08-29] MEDS: NACL 0.9% 1,000 ML IV SCH (11:25)
[2023-08-29 12:00] VITALS: BP 176/81; PULSE 62; RESP 16; TEMP 98.5; O2SAT 100
[2023-08-29] MEDS: FAMOTIDINE 20 MG TAB PO SCH (12:23)
[2023-08-29] MEDS: LOSARTAN 50 MG TAB PO SCH (12:23)
[2023-08-29] MEDS: MAGNESIUM OXIDE 400 MG TAB PO PRN (12:25)
[2023-08-29 16:00] VITALS: BP 176/85; PULSE 61; RESP 16; TEMP 98.6; O2SAT 100
[2023-08-29] MEDS ORDERED: hydrALAZINE 25 MG TAB PO PRN (17:35)
[2023-08-29 20:00] VITALS: BP 151/81; PULSE 60; PULSE 64; RESP 18; RESP 19; TEMP 98; O2SAT 97
[2023-08-30 04:00] VITALS: BP 169/74; PULSE 59; RESP 20; TEMP 97.1; O2SAT 100
[2023-08-30] MEDS: ACETAMINOPHEN 325 MG TAB PO PRN ×2 (05:08→11:59)
[2023-08-30] MEDS: hydrALAZINE 20 MG/ML VIAL IVP PRN (05:10)
[2023-08-30] MEDS: NACL 0.9% 1,000 ML IV SCH (05:12)
[2023-08-30 07:06] LABS: BASOPHILS # (AUTO) 0.1 K/uL (0.00-0.22); BASOPHILS % (AUTO) 1.2 % (0.0-2.0); EOSINOPHILS # (AUTO) 0.2 K/uL (0-0.4); EOSINOPHILS % (AUTO) 3.7 % (0.0-4.0); HEMATOCRIT 33.6 % (36-48); HEMOGLOBIN 10.8 g/dL (12.0-16.0); LYMPHOCYTES # (AUTO) 2.3 K/uL (2.5-16.5); LYMPHOCYTES % (AUTO) 39.7 % (20.5-51.1); MEAN CORPUSCULAR HEMOGLOBIN 27 pg (27-31); MEAN CORPUSCULAR HGB CONC 32 g/dL (33-37); MEAN CORPUSCULAR VOLUME 84.9 fL (80-94); MONOCYTES # (AUTO) 0.3 K/uL (0.8-1.0); NEUTROPHILS # (AUTO) 2.8 K/uL (1.8-7.7); NEUTROPHILS % (AUTO) 49.4 % (42.2-75.2); PLATELET COUNT (AUTO) 315 K/uL (140-450); RED BLOOD CELL COUNT(AUTO) 3.95 MIL/uL (4.20-5.40); RED CELL DISTRIBUTION WIDTH 13.9 % (11.6-13.7); WHITE BLOOD COUNT (AUTO) 5.7 K/uL (4.8-10.8)
[2023-08-30 07:09] LABS: ANION GAP 11.5 (8-16); CALCIUM 8.7 mg/dL (8.5-10.1); CHLORIDE 102 mmol/L (98-107); CREATININE 1.3 mg/dL (0.6-1.3); GLUCOSE 83 mg/dL (74-106); POTASSIUM 3.5 mmol/L (3.5-5.1); SODIUM SERUM 138 mmol/L (136-145); UREA NITROGEN, BLOOD 11 mg/dL (7-18)
[2023-08-30] MEDS: HYDROcodone/APAP 5/325 MG 1 TAB TAB PO PRN (07:49)
[2023-08-30] MEDS: LOSARTAN 50 MG TAB PO SCH (08:35)
[2023-08-30] MEDS: FAMOTIDINE 20 MG TAB PO SCH (08:36)
[2023-08-30] MEDS: APIXABAN 2.5 MG TAB PO SCH (08:37)
[2023-08-30] MEDS: METOPROLOL SUCCINATE 50 MG TABER PO SCH (08:37)
[2023-08-30] MEDS: GABAPENTIN 300 MG CAP PO SCH ×2 (08:37→12:06)
[2023-08-30] MEDS: ASPIRIN 81 MG TAB.CHEW PO SCH (08:37)
[2023-08-30] MEDS: traZODone 50 MG TAB PO SCH (08:38)
[2023-08-30] MEDS ORDERED: hydroCHLOROthiazide 25 MG TAB PO SCH (09:00)
[2023-08-30 09:31] VITALS: PULSE 57; RESP 18; O2SAT 98
[2023-08-30 09:32] VITALS: BP 158/65; PULSE 57; RESP 18; TEMP 97.9; O2SAT 96
[2023-08-30 11:01] VITALS: BP 145/65; PULSE 57; RESP 18; TEMP 98.6
[2023-08-30] MEDS ORDERED: ASPI81CT95 PO (11:01)
== END 2023-08-30 13:30 | disposition home health service (06) | DRG 205 ==
LOC: MED 14:01 → MTU 19:26
PROVIDERS: ADMIT Student in an Organized Health Care Education/Training Program; ATTEND Student in an Organized Health Care Education/Training Program
DX: M94.0 Chondrocostal junction syndrome [Tietze] (principal); N17.0 Acute kidney failure with tubular necrosis; C81.90 Hodgkin lymphoma, unspecified, unspecified site; I48.91 Unspecified atrial fibrillation; E83.42 Hypomagnesemia; R07.89 Other chest pain; L80 Vitiligo; F03.90 Unspecified dementia, unspecified severity, without behavioral disturbance, psychotic disturbance, mood disturbance, and anxiety; D64.9 Anemia, unspecified; E78.5 Hyperlipidemia, unspecified; R73.9 Hyperglycemia, unspecified; R53.1 Weakness; J44.9 Chronic obstructive pulmonary disease, unspecified; I10 Essential (primary) hypertension
CPT/HCPCS: 36415; 71045; 80048; 80053; 83036; 83735; 83880; 84100; 84484; 85025; 85610; 85730; 87081; 93005; 96361; 96374; 97112; 97116; 97530; 99285; J0360; J2270

== ENCOUNTER 2023-09-13 10:25 | Inpatient (IN) | payer OTHER ==
[~2023-09-13] VITALS: Ht 170.2 cm; Wt 65.8 kg
[~2023-09-13 10:25] MED LIST changes: -ACET-8905 PO; +APIX2.5 PO; +ASPI81CT95 PO; -BEN10 PO; -CEPH-588 PO; +FAMO-368 PO; -FAMO-90 PO; -FERR325E14 PO; -FOLI1TAB90 PO; +GABA300C PO; +HYDR-3293 PO; -LISI20TA29 PO; -LYR50 PO; -MAG355OR2 PO; +MECL-303 PO; +METO50TE2 PO; -OMEP40EC23 PO; -ONDA-188 PO; -SENN-73 PO; -SUCR1TAB35 PO; +TRAZ-343 PO; -ZOLP5TAB1 PO
[2023-09-13 10:48] VITALS: BP 88/47; PULSE 102; RESP 18; TEMP 97.4; O2SAT 97
[2023-09-13] MEDS ORDERED: NACL 0.9% 1,000 ML IV ONE ×3 (11:05→14:40)
[2023-09-13 12:35] LABS: BASOPHILS # (AUTO) 0.1 K/uL (0.00-0.22); BASOPHILS % (AUTO) 1.3 % (0.0-2.0); EOSINOPHILS # (AUTO) 0.1 K/uL (0-0.4); EOSINOPHILS % (AUTO) 1.8 % (0.0-4.0); HEMATOCRIT 35.6 % (36-48); HEMOGLOBIN 11.4 g/dL (12.0-16.0); LYMPHOCYTES # (AUTO) 2.3 K/uL (2.5-16.5); LYMPHOCYTES % (AUTO) 30.8 % (20.5-51.1); MEAN CORPUSCULAR HEMOGLOBIN 28 pg (27-31); MEAN CORPUSCULAR HGB CONC 32 g/dL (33-37); MEAN CORPUSCULAR VOLUME 85.6 fL (80-94); MONOCYTES # (AUTO) 0.4 K/uL (0.8-1.0); MONOCYTES % (AUTO) 5.6 % (1.7-9.3); NEUTROPHILS # (AUTO) 4.5 K/uL (1.8-7.7); NEUTROPHILS % (AUTO) 60.5 % (42.2-75.2); PLATELET COUNT (AUTO) 339 K/uL (140-450); RED BLOOD CELL COUNT(AUTO) 4.16 MIL/uL (4.20-5.40); RED CELL DISTRIBUTION WIDTH 14.3 % (11.6-13.7); WHITE BLOOD COUNT (AUTO) 7.4 K/uL (4.8-10.8)
[2023-09-13 12:57] LABS: ALANINE AMINOTRANSFERASE 13 U/L (12-78); ALBUMIN 3.4 g/dL (3.4-5.0); ALKALINE PHOSPHATASE 82 U/L (50-136); ANION GAP 14.3 (8-16); ASPARTATE AMINOTRANSFERASE 16 U/L (15-37); CALCIUM 8.8 mg/dL (8.5-10.1); CARBON DIOXIDE 25.4 mmol/L (21-32); CHLORIDE 101 mmol/L (98-107); CREATININE 3.3 mg/dL (0.6-1.3); GLUCOSE 100 mg/dL (74-106); LIPASE 34 U/L (16-77); POTASSIUM 3.7 mmol/L (3.5-5.1); SODIUM SERUM 137 mmol/L (136-145); TOTAL BILIRUBIN 0.6 mg/dL (0.0-1.0); TOTAL PROTEIN, SERUM 8.3 g/dL (6.4-8.2); UREA NITROGEN, BLOOD 42 mg/dL (7-18)
[2023-09-13 14:00] VITALS: O2SAT 97
[2023-09-13] MEDS: NACL 0.9% 1,000 ML IV SCH (16:10)
[2023-09-13 22:55] VITALS: BP 142/69; PULSE 66; PULSE 69; RESP 17; RESP 20; TEMP 97.4; O2SAT 100
[2023-09-14] VITALS: BP 140/64; PULSE 60; PULSE 63; RESP 18; TEMP 97; O2SAT 99
[2023-09-14] MEDS: NACL 0.9% 1,000 ML IV SCH ×2 (00:16→18:50)
[2023-09-14 04:00] VITALS: BP 134/82; PULSE 61; PULSE 64; RESP 18; TEMP 97.3; O2SAT 100
[2023-09-14] MEDS ORDERED: MAG SULF 2000 MG/WATER PREMIX 50 ML IV PRN (06:30)
[2023-09-14] MEDS ORDERED: DOCUSATE SODIUM 100 MG GELCAP PO PRN (06:30)
[2023-09-14] MEDS ORDERED: ZOLPIDEM 10 MG TAB PO PRN (06:30)
[2023-09-14] MEDS ORDERED: MORPHINE SULFATE 2 MG/ML SYR IVP PRN (06:30)
[2023-09-14] MEDS ORDERED: ACETAMINOPHEN 325 MG TAB PO PRN (06:30)
[2023-09-14] MEDS ORDERED: ONDANSETRON 4 MG/2 ML VIAL IVP PRN (06:30)
[2023-09-14] MEDS ORDERED: POTASSIUM CHLORIDE 10 MEQ TABER PO PRN (06:30)
[2023-09-14 07:05] LABS: BASOPHILS # (AUTO) 0.1 K/uL (0.00-0.22); EOSINOPHILS # (AUTO) 0.2 K/uL (0-0.4); EOSINOPHILS % (AUTO) 3.6 % (0.0-4.0); HEMATOCRIT 29.6 % (36-48); HEMOGLOBIN 9.3 g/dL (12.0-16.0); LYMPHOCYTES # (AUTO) 2.2 K/uL (2.5-16.5); MEAN CORPUSCULAR HEMOGLOBIN 27 pg (27-31); MEAN CORPUSCULAR HGB CONC 32 g/dL (33-37); MEAN CORPUSCULAR VOLUME 84.7 fL (80-94); MONOCYTES # (AUTO) 0.4 K/uL (0.8-1.0); MONOCYTES % (AUTO) 6.6 % (1.7-9.3); NEUTROPHILS # (AUTO) 3.4 K/uL (1.8-7.7); NEUTROPHILS % (AUTO) 53.8 % (42.2-75.2); PLATELET COUNT (AUTO) 289 K/uL (140-450); RED BLOOD CELL COUNT(AUTO) 3.49 MIL/uL (4.20-5.40); RED CELL DISTRIBUTION WIDTH 14.2 % (11.6-13.7); WHITE BLOOD COUNT (AUTO) 6.3 K/uL (4.8-10.8)
[2023-09-14 07:23] LABS: ANION GAP 15.8 (8-16); CALCIUM 7.6 mg/dL (8.5-10.1); CARBON DIOXIDE 20.7 mmol/L (21-32); CHLORIDE 110 mmol/L (98-107); CREATININE 1.6 mg/dL (0.6-1.3); GLUCOSE 92 mg/dL (74-106); POTASSIUM 3.5 mmol/L (3.5-5.1); SODIUM SERUM 143 mmol/L (136-145); UREA NITROGEN, BLOOD 36 mg/dL (7-18)
[2023-09-14 08:00] VITALS: BP 141/57; PULSE 66; RESP 18; TEMP 96.8; O2SAT 96; O2SAT 98
[2023-09-14] MEDS ORDERED: APIXABAN 2.5 MG TAB PO SCH (09:00)
[2023-09-14] MEDS: ASPIRIN 81 MG TAB.CHEW PO SCH (09:22)
[2023-09-14] MEDS: GABAPENTIN 300 MG CAP PO SCH ×2 (09:24→20:28)
[2023-09-14] MEDS: METOPROLOL SUCCINATE 50 MG TABER PO SCH (09:24)
[2023-09-14] MEDS: traZODone 50 MG TAB PO SCH (09:24)
[2023-09-14 13:13] LABS: APPEARANCE,URINE CLEAR (CLEAR); BILIRUBIN,URINE NEGATIVE (NEGATIVE); BLOOD, URINE NEGATIVE (NEGATIVE); COLOR,URINE YELLOW (YELLOW); LEUKOCYTE ESTERASE ,URINE NEGATIVE (NEGATIVE); NITRITE, URINE NEGATIVE (NEGATIVE); PROTEIN,URINE NEGATIVE (NEGATIVE); UGLUCOSE NEGATIVE (NEGATIVE); UROBILINOGEN,URINE 0.2 EU/dL (0.2 - 1)
[2023-09-14 16:00] VITALS: BP 131/69; PULSE 63; RESP 18; TEMP 96.8; O2SAT 96
[2023-09-14 20:00] VITALS: PULSE 63; RESP 18; O2SAT 96
[2023-09-14] MEDS: APIXABAN 2.5 MG TAB PO SCH (20:30)
[2023-09-15 02:54] LABS: FLU A ANTIGEN negative (NEGATIVE); FLU B ANTIGEN NEGATIVE (NEGATIVE)
[2023-09-15 07:28] LABS: BASOPHILS # (AUTO) 0.1 K/uL (0.00-0.22); BASOPHILS % (AUTO) 2.2 % (0.0-2.0); EOSINOPHILS # (AUTO) 0.3 K/uL (0-0.4); EOSINOPHILS % (AUTO) 4.7 % (0.0-4.0); HEMATOCRIT 29.2 % (36-48); HEMOGLOBIN 9.4 g/dL (12.0-16.0); LYMPHOCYTES # (AUTO) 2.1 K/uL (2.5-16.5); LYMPHOCYTES % (AUTO) 38.4 % (20.5-51.1); MEAN CORPUSCULAR HEMOGLOBIN 27 pg (27-31); MEAN CORPUSCULAR HGB CONC 32 g/dL (33-37); MEAN CORPUSCULAR VOLUME 84.3 fL (80-94); MONOCYTES # (AUTO) 0.4 K/uL (0.8-1.0); MONOCYTES % (AUTO) 6.7 % (1.7-9.3); NEUTROPHILS # (AUTO) 2.6 K/uL (1.8-7.7); PLATELET COUNT (AUTO) 292 K/uL (140-450); RED BLOOD CELL COUNT(AUTO) 3.46 MIL/uL (4.20-5.40); RED CELL DISTRIBUTION WIDTH 13.6 % (11.6-13.7); WHITE BLOOD COUNT (AUTO) 5.5 K/uL (4.8-10.8)
[2023-09-15 08:00] VITALS: BP 158/78; PULSE 57; PULSE 63; RESP 18; TEMP 96.9; O2SAT 96; O2SAT 97
[2023-09-15] MEDS: NACL 0.9% 1,000 ML IV SCH ×2 (08:10→21:30)
[2023-09-15 08:17] LABS: ANION GAP 14.4 (8-16); CALCIUM 8.3 mg/dL (8.5-10.1); CARBON DIOXIDE 22.1 mmol/L (21-32); CHLORIDE 107 mmol/L (98-107); GLUCOSE 84 mg/dL (74-106); POTASSIUM 3.5 mmol/L (3.5-5.1); SODIUM SERUM 140 mmol/L (136-145); UREA NITROGEN, BLOOD 20 mg/dL (7-18)
[2023-09-15] MEDS ORDERED: LOSA25TA43 PO (08:17)
[2023-09-15] MEDS: ASPIRIN 81 MG TAB.CHEW PO SCH (08:54)
[2023-09-15] MEDS: GABAPENTIN 300 MG CAP PO SCH ×2 (08:55→20:41)
[2023-09-15] MEDS: METOPROLOL SUCCINATE 50 MG TABER PO SCH (08:55)
[2023-09-15] MEDS: traZODone 50 MG TAB PO SCH (08:55)
[2023-09-15] MEDS: APIXABAN 2.5 MG TAB PO SCH ×2 (08:56→20:41)
[2023-09-15 16:00] VITALS: BP 139/61; PULSE 64; RESP 18; TEMP 96.7; O2SAT 64
[2023-09-15 18:17] VITALS: BP 139/61; PULSE 64; RESP 18; TEMP 96.7
[2023-09-15 20:00] VITALS: BP 133/78; PULSE 60; RESP 17; TEMP 97.2; TEMP 97.3; O2SAT 94
[2023-09-16 04:00] VITALS: BP 154/84; PULSE 59; RESP 17; TEMP 97.6; O2SAT 98
[2023-09-16 06:53] LABS: BASOPHILS # (AUTO) 0.1 K/uL (0.00-0.22); BASOPHILS % (AUTO) 2.3 % (0.0-2.0); EOSINOPHILS # (AUTO) 0.2 K/uL (0-0.4); EOSINOPHILS % (AUTO) 4.5 % (0.0-4.0); HEMATOCRIT 29.4 % (36-48); HEMOGLOBIN 9.5 g/dL (12.0-16.0); LYMPHOCYTES # (AUTO) 1.5 K/uL (2.5-16.5); LYMPHOCYTES % (AUTO) 36.3 % (20.5-51.1); MEAN CORPUSCULAR HEMOGLOBIN 28 pg (27-31); MEAN CORPUSCULAR HGB CONC 33 g/dL (33-37); MEAN CORPUSCULAR VOLUME 84.7 fL (80-94); MONOCYTES # (AUTO) 0.3 K/uL (0.8-1.0); MONOCYTES % (AUTO) 6.2 % (1.7-9.3); NEUTROPHILS # (AUTO) 2.1 K/uL (1.8-7.7); NEUTROPHILS % (AUTO) 50.7 % (42.2-75.2); PLATELET COUNT (AUTO) 321 K/uL (140-450); RED BLOOD CELL COUNT(AUTO) 3.47 MIL/uL (4.20-5.40); RED CELL DISTRIBUTION WIDTH 13.6 % (11.6-13.7); WHITE BLOOD COUNT (AUTO) 4.1 K/uL (4.8-10.8)
[2023-09-16 07:24] LABS: ANION GAP 11.7 (8-16); CALCIUM 8.2 mg/dL (8.5-10.1); CARBON DIOXIDE 26.3 mmol/L (21-32); CHLORIDE 109 mmol/L (98-107); CREATININE 1.1 mg/dL (0.6-1.3); GLUCOSE 82 mg/dL (74-106); SODIUM SERUM 143 mmol/L (136-145); UREA NITROGEN, BLOOD 18 mg/dL (7-18)
== END 2023-09-16 07:39 | disposition home health service (06) | DRG 640 ==
LOC: MED 10:25 → MTU 16:09
DX: E86.0 Dehydration (principal); N17.0 Acute kidney failure with tubular necrosis; J06.9 Acute upper respiratory infection, unspecified; J98.8 Other specified respiratory disorders; I12.9 Hypertensive chronic kidney disease with stage 1 through stage 4 chronic kidney disease, or unspecified chronic kidney disease; N18.31 Chronic kidney disease, stage 3a; K21.9 Gastro-esophageal reflux disease without esophagitis; G62.9 Polyneuropathy, unspecified; G47.00 Insomnia, unspecified; Z20.822 Contact with and (suspected) exposure to COVID-19
CPT/HCPCS: 36415; 71045; 76700; 76770; 80048; 80053; 81003; 83036; 83690; 83735; 84484; 85025; 87081; 87635-QW; 93005; 96360; 96361; 97116; 97163-GP; 99291; Q0092

== ENCOUNTER 2023-12-22 09:57 | Inpatient (IN) | payer OTHER ==
[2023-12-22] VITALS (7 sets, daily range): BP systolic 83–171; BP diastolic 58–63; PULSE 59–80; RESP 16–18; TEMP 98.3–98.4; O2SAT 99–100
[~2023-12-22] VITALS: Ht 170.2 cm; Wt 69.4 kg
[~2023-12-22 09:57] MED LIST changes: -HYDR-3293 PO; +LOSA25TA43 PO
[2023-12-22 10:31] LABS: BASOPHILS # (AUTO) 0.1 K/uL (0.00-0.22); BASOPHILS % (AUTO) 1.3 % (0.0-2.0); EOSINOPHILS # (AUTO) 0.1 K/uL (0-0.4); EOSINOPHILS % (AUTO) 1.5 % (0.0-4.0); LYMPHOCYTES # (AUTO) 2.7 K/uL (2.5-16.5); LYMPHOCYTES % (AUTO) 40.7 % (20.5-51.1); MEAN CORPUSCULAR HEMOGLOBIN 28 pg (27-31); MEAN CORPUSCULAR HGB CONC 33 g/dL (33-37); MEAN CORPUSCULAR VOLUME 85.6 fL (80-94); MONOCYTES # (AUTO) 0.4 K/uL (0.8-1.0); MONOCYTES % (AUTO) 5.6 % (1.7-9.3); NEUTROPHILS # (AUTO) 3.4 K/uL (1.8-7.7); NEUTROPHILS % (AUTO) 50.9 % (42.2-75.2); PLATELET COUNT (AUTO) 388 K/uL (140-450); RED BLOOD CELL COUNT(AUTO) 4.33 MIL/uL (4.20-5.40); RED CELL DISTRIBUTION WIDTH 14.4 % (11.6-13.7); WHITE BLOOD COUNT (AUTO) 6.7 K/uL (4.8-10.8)
[2023-12-22 10:48] LABS: CALCIUM 8.8 mg/dL (8.5-10.1); CARBON DIOXIDE 25.3 mmol/L (21-32); CHLORIDE 105 mmol/L (98-107); CREATININE 2.5 mg/dL (0.6-1.3); GLUCOSE 93 mg/dL (74-106); POTASSIUM 3.3 mmol/L (3.5-5.1); SODIUM SERUM 138 mmol/L (136-145); UREA NITROGEN, BLOOD 38 mg/dL (7-18)
[2023-12-22] MEDS: MORPHINE SULFATE 2 MG/ML SYR IVP ONE (10:50)
[2023-12-22 10:53] LABS: ALANINE AMINOTRANSFERASE 68 U/L (12-78); ALBUMIN 3.1 g/dL (3.4-5.0); ALKALINE PHOSPHATASE 85 U/L (50-136); ASPARTATE AMINOTRANSFERASE 50 U/L (15-37); BILIRUBIN,DIRECT 0.1 mg/dL (0.0-0.3); TOTAL BILIRUBIN 0.3 mg/dL (0.0-1.0); TOTAL PROTEIN, SERUM 8.4 g/dL (6.4-8.2)
[2023-12-22 11:20] LABS: LACTIC ACID 1.9 mmol/L (0.4-2.0)
[2023-12-22] MEDS: NACL 0.9% 1,000 ML IV ONE (11:23)
[2023-12-22 11:53] LABS: MAGNESIUM 1.9 mg/dL (1.8-2.4); PHOSPHORUS 3.3 mg/dL (2.5-4.9)
[2023-12-22] MEDS ORDERED: ONDANSETRON 4 MG/2 ML VIAL IVP PRN (13:10)
[2023-12-22] MEDS: NACL 0.9% 1,000 ML IV SCH (13:38)
[2023-12-22] MEDS: HYDROcodone/APAP 5/325 MG 1 TAB TAB PO PRN (15:31)
[2023-12-22] MEDS: POTASSIUM CHLORIDE 10 MEQ TABER PO SCH (17:30)
[2023-12-23] VITALS (10 sets, daily range): BP systolic 107–200; BP diastolic 49–107; PULSE 61–92; RESP 18–20; TEMP 97.1–98.7; O2SAT 98–100
[2023-12-23] MEDS: FAMOTIDINE 20 MG TAB PO STA (01:26)
[2023-12-23] MEDS: ACETAMINOPHEN 325 MG TAB PO PRN (06:11)
[2023-12-23 06:58] LABS: BASOPHILS % (AUTO) 0.8 % (0.0-2.0); EOSINOPHILS # (AUTO) 0.1 K/uL (0-0.4); EOSINOPHILS % (AUTO) 1.4 % (0.0-4.0); HEMATOCRIT 32.3 % (36-48); HEMOGLOBIN 10.5 g/dL (12.0-16.0); LYMPHOCYTES # (AUTO) 1.8 K/uL (2.5-16.5); LYMPHOCYTES % (AUTO) 29.5 % (20.5-51.1); MEAN CORPUSCULAR HEMOGLOBIN 28 pg (27-31); MEAN CORPUSCULAR HGB CONC 33 g/dL (33-37); MEAN CORPUSCULAR VOLUME 85.4 fL (80-94); MONOCYTES # (AUTO) 0.3 K/uL (0.8-1.0); NEUTROPHILS # (AUTO) 3.8 K/uL (1.8-7.7); NEUTROPHILS % (AUTO) 63.3 % (42.2-75.2); PLATELET COUNT (AUTO) 309 K/uL (140-450); RED BLOOD CELL COUNT(AUTO) 3.78 MIL/uL (4.20-5.40); RED CELL DISTRIBUTION WIDTH 14.5 % (11.6-13.7); WHITE BLOOD COUNT (AUTO) 5.9 K/uL (4.8-10.8)
[2023-12-23 07:03] LABS: ANION GAP 10.2 (8-16); CALCIUM 8.4 mg/dL (8.5-10.1); CARBON DIOXIDE 24.3 mmol/L (21-32); CHLORIDE 107 mmol/L (98-107); CREATININE 1.3 mg/dL (0.6-1.3); GLUCOSE 103 mg/dL (74-106); POTASSIUM 3.5 mmol/L (3.5-5.1); SODIUM SERUM 138 mmol/L (136-145); UREA NITROGEN, BLOOD 25 mg/dL (7-18)
[2023-12-23] MEDS: metroNIDAZOLE 500 MG/NS PREMIX 100 ML IV SCH (14:37)
[2023-12-23] MEDS: hydrALAZINE 20 MG/ML VIAL IVP PRN (14:39)
[2023-12-24] VITALS (9 sets, daily range): BP systolic 136–180; BP diastolic 65–100; PULSE 66–92; RESP 18–20; TEMP 96.2–98.3; O2SAT 95–100
[2023-12-24 06:59] LABS: BASOPHILS # (AUTO) 0.1 K/uL (0.00-0.22); BASOPHILS % (AUTO) 0.6 % (0.0-2.0); EOSINOPHILS % (AUTO) 0.1 % (0.0-4.0); HEMATOCRIT 34.5 % (36-48); HEMOGLOBIN 11.3 g/dL (12.0-16.0); LYMPHOCYTES # (AUTO) 1.5 K/uL (2.5-16.5); LYMPHOCYTES % (AUTO) 16.7 % (20.5-51.1); MEAN CORPUSCULAR HEMOGLOBIN 28 pg (27-31); MEAN CORPUSCULAR HGB CONC 33 g/dL (33-37); MEAN CORPUSCULAR VOLUME 83.9 fL (80-94); MONOCYTES # (AUTO) 0.3 K/uL (0.8-1.0); MONOCYTES % (AUTO) 3.5 % (1.7-9.3); NEUTROPHILS % (AUTO) 79.1 % (42.2-75.2); PLATELET COUNT (AUTO) 362 K/uL (140-450); RED BLOOD CELL COUNT(AUTO) 4.11 MIL/uL (4.20-5.40); WHITE BLOOD COUNT (AUTO) 8.9 K/uL (4.8-10.8)
[2023-12-24 07:28] LABS: APPEARANCE,URINE CLEAR (CLEAR); BILIRUBIN,URINE NEGATIVE (NEGATIVE); BLOOD, URINE NEGATIVE (NEGATIVE); COLOR,URINE YELLOW (YELLOW); LEUKOCYTE ESTERASE ,URINE NEGATIVE (NEGATIVE); NITRITE, URINE NEGATIVE (NEGATIVE); PROTEIN,URINE NEGATIVE (NEGATIVE); UGLUCOSE NEGATIVE (NEGATIVE); UROBILINOGEN,URINE 0.2 EU/dL (0.2 - 1)
[2023-12-24 07:33] LABS: ANION GAP 14.4 (8-16); CALCIUM 8.6 mg/dL (8.5-10.1); CARBON DIOXIDE 22.1 mmol/L (21-32); CHLORIDE 104 mmol/L (98-107); GLUCOSE 142 mg/dL (74-106); POTASSIUM 3.5 mmol/L (3.5-5.1); SODIUM SERUM 137 mmol/L (136-145); UREA NITROGEN, BLOOD 15 mg/dL (7-18)
[2023-12-24] MEDS: bisacodyL 5 MG TABEC PO SCH (13:55)
[2023-12-24] MEDS: SUPREP BOWEL PREP KIT 354 ML SOLN.RECON PO SCH (13:55)
[2023-12-24] MEDS: SODIUM PHOSPHATE 118 ML ENEM RC SCH (22:30)
[2023-12-25] VITALS: BP 142/70; PULSE 88; RESP 18; TEMP 98; O2SAT 97
[2023-12-25 04:00] VITALS: BP 148/66; PULSE 70; RESP 18; TEMP 98; O2SAT 96
[2023-12-25 07:24] LABS: BASOPHILS % (AUTO) 0.4 % (0.0-2.0); EOSINOPHILS % (AUTO) 0.1 % (0.0-4.0); HEMATOCRIT 31.9 % (36-48); HEMOGLOBIN 10.6 g/dL (12.0-16.0); LYMPHOCYTES # (AUTO) 1.3 K/uL (2.5-16.5); LYMPHOCYTES % (AUTO) 16.2 % (20.5-51.1); MEAN CORPUSCULAR HEMOGLOBIN 28 pg (27-31); MEAN CORPUSCULAR HGB CONC 33 g/dL (33-37); MEAN CORPUSCULAR VOLUME 83.8 fL (80-94); MONOCYTES # (AUTO) 0.4 K/uL (0.8-1.0); MONOCYTES % (AUTO) 5.6 % (1.7-9.3); NEUTROPHILS # (AUTO) 6.3 K/uL (1.8-7.7); NEUTROPHILS % (AUTO) 77.7 % (42.2-75.2); PLATELET COUNT (AUTO) 321 K/uL (140-450); RED CELL DISTRIBUTION WIDTH 14.2 % (11.6-13.7)
[2023-12-25] MEDS ORDERED: diphenhydrAMINE 50 MG/ML VIAL ONE (07:37)
[2023-12-25] MEDS ORDERED: fentaNYL citrate 0.05 MG/ML VIAL ONE (07:37)
[2023-12-25] MEDS ORDERED: MIDAZOLAM 5 MG/5 ML VIAL ONE ×2 (07:38)
[2023-12-25 07:40] LABS: ANION GAP 13.4 (8-16); CARBON DIOXIDE 22.9 mmol/L (21-32); CHLORIDE 106 mmol/L (98-107); CREATININE 0.9 mg/dL (0.6-1.3); GLUCOSE 124 mg/dL (74-106); POTASSIUM 3.3 mmol/L (3.5-5.1); SODIUM SERUM 139 mmol/L (136-145); UREA NITROGEN, BLOOD 12 mg/dL (7-18)
[2023-12-25] MEDS: MIDAZOLAM 2 MG/2 ML VIAL IVP SCH (08:11)
[2023-12-25] MEDS: fentaNYL citrate 0.05 MG/ML VIAL IVP SCH (08:12)
[2023-12-25 08:50] VITALS: PULSE 78
[2023-12-25 08:53] VITALS: PULSE 68; RESP 20; O2SAT 99
[2023-12-25] MEDS ORDERED: PANT40EC PO (11:01)
[2023-12-25] MEDS: POTASSIUM CHLORIDE 10 MEQ TABER PO SCH (14:42)
== END 2023-12-25 16:30 | disposition home or self-care (01) | DRG 391 ==
LOC: MED 09:57 → MTU 13:11
PROVIDERS: ADMIT Student in an Organized Health Care Education/Training Program; ATTEND Student in an Organized Health Care Education/Training Program
PROC: 0DB68ZX Excision of Stomach, Via Natural or Artificial Opening Endoscopic, Diagnostic (ICD-10-PCS; principal; 2023-12-25 08:00)
PROC: 0DBH8ZX Excision of Cecum, Via Natural or Artificial Opening Endoscopic, Diagnostic (ICD-10-PCS; 2023-12-25 08:00)
DX: K52.9 Noninfective gastroenteritis and colitis, unspecified (principal); N17.0 Acute kidney failure with tubular necrosis; C85.90 Non-Hodgkin lymphoma, unspecified, unspecified site; E46 Unspecified protein-calorie malnutrition; K57.30 Diverticulosis of large intestine without perforation or abscess without bleeding; I10 Essential (primary) hypertension; F03.A0 Unspecified dementia, mild, without behavioral disturbance, psychotic disturbance, mood disturbance, and anxiety; E86.0 Dehydration; K64.4 Residual hemorrhoidal skin tags; K66.0 Peritoneal adhesions (postprocedural) (postinfection); D64.9 Anemia, unspecified; Z98.84 Bariatric surgery status; Z90.3 Acquired absence of stomach [part of]; Z87.891 Personal history of nicotine dependence; Z87.11 Personal history of peptic ulcer disease; Z68.24 Body mass index [BMI] 24.0-24.9, adult
CPT/HCPCS: 36415; 80048; 80076; 81003; 83605; 83690; 83735; 83880; 84100; 84484; 85025; 87040; 87081; 88305; 88312; 88313; 88342; 93005; 96360; 99285; J0360; J1200; J2250; J3010; J3490

== ENCOUNTER 2024-01-11 11:34 | Inpatient (IN) | payer OTHER ==
[~2024-01-11] VITALS: Ht 170.2 cm; Wt 62.6 kg
[~2024-01-11 11:34] MED LIST changes: +PANT40EC PO
[2024-01-11 11:39] VITALS: BP 119/72; PULSE 90; RESP 15; TEMP 98.6; O2SAT 99
[2024-01-11 11:55] VITALS: O2SAT 99
[2024-01-11 13:56] VITALS: O2SAT 99
[2024-01-11 14:01] LABS: BASOPHILS # (AUTO) 0.1 K/uL (0.00-0.22); EOSINOPHILS # (AUTO) 0.2 K/uL (0-0.4); EOSINOPHILS % (AUTO) 1.4 % (0.0-4.0); LYMPHOCYTES # (AUTO) 3.2 K/uL (2.5-16.5); MEAN CORPUSCULAR HEMOGLOBIN 28 pg (27-31); MEAN CORPUSCULAR HGB CONC 32 g/dL (33-37); MEAN CORPUSCULAR VOLUME 85.1 fL (80-94); MONOCYTES # (AUTO) 0.7 K/uL (0.8-1.0); NEUTROPHILS % (AUTO) 62.6 % (42.2-75.2); PLATELET COUNT (AUTO) 320 K/uL (140-450); RED BLOOD CELL COUNT(AUTO) 4.35 MIL/uL (4.20-5.40); RED CELL DISTRIBUTION WIDTH 14.9 % (11.6-13.7); WHITE BLOOD COUNT (AUTO) 11.2 K/uL (4.8-10.8)
[2024-01-11] MEDS: diazePAM 5 MG TAB PO ONE (14:26)
[2024-01-11 14:43] LABS: ANION GAP 10.8 (8-16); CALCIUM 8.2 mg/dL (8.5-10.1); CARBON DIOXIDE 31.6 mmol/L (21-32); CHLORIDE 102 mmol/L (98-107); CREATININE 3.3 mg/dL (0.6-1.3); GLUCOSE 92 mg/dL (74-106); POTASSIUM 3.4 mmol/L (3.5-5.1); SODIUM SERUM 141 mmol/L (136-145); UREA NITROGEN, BLOOD 20 mg/dL (7-18)
[2024-01-11 15:02] LABS: INR 0.97 (0.8-1.2); PARTIAL THROMBOPLASTIN TIME 25.6 secs (22-35.6); PROTHROMBIN TIME 10.2 secs (10.8-13.4)
[2024-01-11] MEDS: NACL 0.9% 1,000 ML IV ONE (15:11)
[2024-01-11] MEDS ORDERED: hydrALAZINE 20 MG/ML VIAL IVP SCH (15:25)
[2024-01-11] MEDS ORDERED: MORPHINE SULFATE 2 MG/ML SYR IVP PRN (15:25)
[2024-01-11] MEDS ORDERED: HYDROcodone/APAP 5/325 MG 1 TAB TAB PO SCH (15:25)
[2024-01-11] MEDS ORDERED: FERR-15 PO (15:46)
[2024-01-11] MEDS ORDERED: TRAZ-345 PO (15:46)
[2024-01-11] MEDS ORDERED: ACET-9525 PO (15:46)
[2024-01-11] MEDS ORDERED: HYDR-3293 PO (15:46)
[2024-01-11] MEDS ORDERED: GABA300C55 PO (15:46)
[2024-01-11] MEDS ORDERED: PANT40EC56 PO (15:46)
[2024-01-11 15:57] VITALS: O2SAT 97
[2024-01-11] MEDS ORDERED: HYDROcodone/APAP 5/325 MG 1 TAB TAB PO PRN (16:15)
[2024-01-11] MEDS: NACL 0.9% 1,000 ML IV SCH (16:30)
[2024-01-11] MEDS: POTASSIUM CHLORIDE 10 MEQ TABER PO SCH (16:38)
[2024-01-11 18:06] LABS: APPEARANCE,URINE CLEAR (CLEAR); BILIRUBIN,URINE 1+ (NEGATIVE); BLOOD, URINE NEGATIVE (NEGATIVE); COLOR,URINE YELLOW (YELLOW); LEUKOCYTE ESTERASE ,URINE NEGATIVE (NEGATIVE); NITRITE, URINE NEGATIVE (NEGATIVE); PH,URINE 5.5 (5.0-9.0); PROTEIN,URINE TRACE (NEGATIVE); UGLUCOSE NEGATIVE (NEGATIVE); UROBILINOGEN,URINE 0.2 EU/dL (0.2 - 1)
[2024-01-11 18:11] LABS: ICTOTEST NEGATIVE (NEGATIVE)
[2024-01-11 18:13] LABS: BACTERIA,URINE 2+ /HPF (None Seen); CALCIUM OXALATE CRYSTALS,UR 0-10 /HPF (None Seen); HYALINE CASTS, URINE 0-10 /LPF (None Seen); MUCUS,URINE 1+ /LPF (None Seen); RBC,URINE 0-5 /HPF (0-5); TRICHOMONAS,URINE None Seen /HPF (None Seen); WBC,URINE 0-5 /HPF (0-5); YEAST,URINE None Seen /HPF (None Seen)
[2024-01-11 18:17] VITALS: O2SAT 97
[2024-01-11 20:55] VITALS: BP 142/82; PULSE 58; RESP 18; TEMP 98.3; O2SAT 97; O2SAT 98
[2024-01-11] MEDS: METOPROLOL SUCCINATE 50 MG TABER PO SCH (21:00)
[2024-01-12 04:00] VITALS: BP 145/68; PULSE 62; RESP 18; TEMP 98.2; O2SAT 97
[2024-01-12 07:10] LABS: ALANINE AMINOTRANSFERASE 11 U/L (12-78); ALBUMIN 2.5 g/dL (3.4-5.0); ALKALINE PHOSPHATASE 68 U/L (50-136); ANION GAP 11.7 (8-16); ASPARTATE AMINOTRANSFERASE 13 U/L (15-37); CALCIUM 7.6 mg/dL (8.5-10.1); CARBON DIOXIDE 26.4 mmol/L (21-32); CHLORIDE 106 mmol/L (98-107); CREATININE 1.7 mg/dL (0.6-1.3); GLUCOSE 89 mg/dL (74-106); POTASSIUM 3.1 mmol/L (3.5-5.1); SODIUM SERUM 141 mmol/L (136-145); TOTAL BILIRUBIN 0.4 mg/dL (0.0-1.0); UREA NITROGEN, BLOOD 21 mg/dL (7-18)
[2024-01-12 08:00] VITALS: BP 145/60; PULSE 63; RESP 18; TEMP 96.1; O2SAT 97
[2024-01-12 08:18] LABS: BASOPHILS # (AUTO) 0.1 K/uL (0.00-0.22); BASOPHILS % (AUTO) 1.1 % (0.0-2.0); EOSINOPHILS # (AUTO) 0.2 K/uL (0-0.4); EOSINOPHILS % (AUTO) 2.5 % (0.0-4.0); HEMATOCRIT 30.2 % (36-48); HEMOGLOBIN 9.9 g/dL (12.0-16.0); LYMPHOCYTES # (AUTO) 2.1 K/uL (2.5-16.5); LYMPHOCYTES % (AUTO) 33.4 % (20.5-51.1); MEAN CORPUSCULAR HEMOGLOBIN 28 pg (27-31); MEAN CORPUSCULAR HGB CONC 33 g/dL (33-37); MEAN CORPUSCULAR VOLUME 84.3 fL (80-94); MONOCYTES # (AUTO) 0.4 K/uL (0.8-1.0); MONOCYTES % (AUTO) 5.5 % (1.7-9.3); NEUTROPHILS # (AUTO) 3.7 K/uL (1.8-7.7); NEUTROPHILS % (AUTO) 57.5 % (42.2-75.2); PLATELET COUNT (AUTO) 375 K/uL (140-450); RED BLOOD CELL COUNT(AUTO) 3.58 MIL/uL (4.20-5.40); RED CELL DISTRIBUTION WIDTH 14.8 % (11.6-13.7); WHITE BLOOD COUNT (AUTO) 6.4 K/uL (4.8-10.8)
[2024-01-12] MEDS ORDERED: FAMOTIDINE 20 MG TAB PO SCH (09:00)
[2024-01-12] MEDS: GABAPENTIN 300 MG CAP PO SCH (10:43)
[2024-01-12] MEDS: PANTOPRAZOLE 40 MG TABEC PO SCH (10:43)
[2024-01-12] MEDS: FERROUS SULFATE 325 MG TABEC PO SCH (10:44)
[2024-01-12] MEDS: METOPROLOL 50 MG TAB PO SCH (10:44)
[2024-01-12] MEDS: APIXABAN 2.5 MG TAB PO SCH (10:44)
[2024-01-12] MEDS ORDERED: POTASSIUM CHLORIDE 40 MEQ in NACL 0.9% 1,000 ML IV SCH (12:10)
[2024-01-12] MEDS: POTASSIUM CHLORIDE 10 MEQ TABER PO SCH (13:14)
[2024-01-12 16:00] VITALS: BP 135/73; PULSE 71; RESP 18; TEMP 97.5; O2SAT 98
[2024-01-12 20:00] VITALS: PULSE 60; RESP 18; O2SAT 96
[2024-01-13] VITALS: BP 140/82; PULSE 61; RESP 18; TEMP 98.3; O2SAT 96
[2024-01-13 07:02] LABS: BASOPHILS # (AUTO) 0.1 K/uL (0.00-0.22); BASOPHILS % (AUTO) 1.2 % (0.0-2.0); EOSINOPHILS # (AUTO) 0.1 K/uL (0-0.4); EOSINOPHILS % (AUTO) 2.6 % (0.0-4.0); HEMATOCRIT 35.3 % (36-48); HEMOGLOBIN 11.6 g/dL (12.0-16.0); LYMPHOCYTES # (AUTO) 1.8 K/uL (2.5-16.5); LYMPHOCYTES % (AUTO) 33.8 % (20.5-51.1); MEAN CORPUSCULAR HEMOGLOBIN 28 pg (27-31); MEAN CORPUSCULAR HGB CONC 33 g/dL (33-37); MEAN CORPUSCULAR VOLUME 85.4 fL (80-94); MONOCYTES # (AUTO) 0.3 K/uL (0.8-1.0); MONOCYTES % (AUTO) 5.9 % (1.7-9.3); NEUTROPHILS % (AUTO) 56.5 % (42.2-75.2); PLATELET COUNT (AUTO) 362 K/uL (140-450); RED BLOOD CELL COUNT(AUTO) 4.13 MIL/uL (4.20-5.40); WHITE BLOOD COUNT (AUTO) 5.3 K/uL (4.8-10.8)
[2024-01-13 07:26] LABS: ALANINE AMINOTRANSFERASE 9 U/L (12-78); ALBUMIN 2.8 g/dL (3.4-5.0); ALKALINE PHOSPHATASE 75 U/L (50-136); ANION GAP 11.6 (8-16); ASPARTATE AMINOTRANSFERASE 17 U/L (15-37); CALCIUM 8.5 mg/dL (8.5-10.1); CARBON DIOXIDE 25.8 mmol/L (21-32); CHLORIDE 108 mmol/L (98-107); GLUCOSE 88 mg/dL (74-106); POTASSIUM 3.4 mmol/L (3.5-5.1); SODIUM SERUM 142 mmol/L (136-145); TOTAL BILIRUBIN 0.5 mg/dL (0.0-1.0); TOTAL PROTEIN, SERUM 6.6 g/dL (6.4-8.2); UREA NITROGEN, BLOOD 16 mg/dL (7-18)
[2024-01-13 08:00] VITALS: BP 172/73; PULSE 59; PULSE 69; RESP 18; RESP 19; TEMP 96.9; O2SAT 89; O2SAT 98
[2024-01-13] MEDS ORDERED: AMLO5TAB PO (12:05)
[2024-01-13] MEDS: hydrALAZINE 20 MG/ML VIAL IVP PRN (12:14)
[2024-01-13 15:10] VITALS: BP 126/56; PULSE 77; RESP 18; TEMP 96.9
== END 2024-01-13 17:22 | disposition home or self-care (01) | DRG 640 ==
LOC: MED 11:34 → MTU 15:38
PROVIDERS: ADMIT Student in an Organized Health Care Education/Training Program; ATTEND Student in an Organized Health Care Education/Training Program
DX: E86.0 Dehydration (principal); N17.0 Acute kidney failure with tubular necrosis; E44.1 Mild protein-calorie malnutrition; I12.9 Hypertensive chronic kidney disease with stage 1 through stage 4 chronic kidney disease, or unspecified chronic kidney disease; N18.9 Chronic kidney disease, unspecified; E87.6 Hypokalemia; I48.91 Unspecified atrial fibrillation; Z90.81 Acquired absence of spleen; Z90.710 Acquired absence of both cervix and uterus; Z85.72 Personal history of non-Hodgkin lymphomas; Z87.891 Personal history of nicotine dependence; Z79.899 Other long term (current) drug therapy; Z68.21 Body mass index [BMI] 21.0-21.9, adult
CPT/HCPCS: 36415; 70450; 71045; 72192; 73502; 80048; 80053; 81001; 83880; 84484; 85025; 85610; 85730; 87081; 87086; 93005; 96360; 97112; 97116; 97163-GP; 97530; 99285; J0360

== ENCOUNTER 2024-01-31 17:27 | Inpatient (IN) | payer OTHER ==
[~2024-01-31] VITALS: Ht 170.2 cm; Wt 72.6 kg
[~2024-01-31 17:27] MED LIST changes: +ACET-9525 PO; +AMLO5TAB PO; -ASPI81CT95 PO; -FAMO-368 PO; +FERR-15 PO; -GABA300C PO; +GABA300C55 PO; +HYDR-3293 PO; -LOSA25TA43 PO; -PANT40EC PO; +PANT40EC56 PO; -TRAZ-343 PO; +TRAZ-345 PO
[2024-01-31 17:54] VITALS: BP 127/70; PULSE 61; RESP 20; TEMP 98.2; O2SAT 98
[2024-01-31 18:42] LABS: BASOPHILS # (AUTO) 0.1 K/uL (0.00-0.22); EOSINOPHILS # (AUTO) 0.1 K/uL (0-0.4); EOSINOPHILS % (AUTO) 1.9 % (0.0-4.0); HEMATOCRIT 36.2 % (36-48); HEMOGLOBIN 11.9 g/dL (12.0-16.0); LYMPHOCYTES # (AUTO) 2.2 K/uL (2.5-16.5); LYMPHOCYTES % (AUTO) 33.3 % (20.5-51.1); MEAN CORPUSCULAR HEMOGLOBIN 28 pg (27-31); MEAN CORPUSCULAR HGB CONC 33 g/dL (33-37); MEAN CORPUSCULAR VOLUME 84.3 fL (80-94); MONOCYTES # (AUTO) 0.3 K/uL (0.8-1.0); MONOCYTES % (AUTO) 4.9 % (1.7-9.3); NEUTROPHILS # (AUTO) 3.8 K/uL (1.8-7.7); NEUTROPHILS % (AUTO) 58.9 % (42.2-75.2); PLATELET COUNT (AUTO) 227 K/uL (140-450); RED CELL DISTRIBUTION WIDTH 15.3 % (11.6-13.7); WHITE BLOOD COUNT (AUTO) 6.5 K/uL (4.8-10.8)
[2024-01-31 18:58] LABS: ALBUMIN 3.2 g/dL (3.4-5.0); TOTAL BILIRUBIN 0.5 mg/dL (0.0-1.0); TOTAL PROTEIN, SERUM 7.5 g/dL (6.4-8.2)
[2024-01-31 19:21] LABS: ANION GAP 18.6 (8-16); CARBON DIOXIDE 22.1 mmol/L (21-32); CHLORIDE 100 mmol/L (98-107); GLUCOSE 99 mg/dL (74-106); POTASSIUM 4.7 mmol/L (3.5-5.1); SODIUM SERUM 136 mmol/L (136-145); UREA NITROGEN, BLOOD 19 mg/dL (7-18)
[2024-01-31 19:31] LABS: CALCIUM 8.8 mg/dL (8.5-10.1)
[2024-01-31 19:32] LABS: CREATININE 1.3 mg/dL (0.6-1.3)
[2024-01-31] MEDS: NACL 0.9% 1,000 ML IV ONE (19:54)
[2024-01-31 23:32] LABS: APPEARANCE,URINE CLEAR (CLEAR); BILIRUBIN,URINE NEGATIVE (NEGATIVE); BLOOD, URINE NEGATIVE (NEGATIVE); COLOR,URINE YELLOW (YELLOW); LEUKOCYTE ESTERASE ,URINE TRACE (NEGATIVE); NITRITE, URINE POSITIVE (NEGATIVE); PROTEIN,URINE NEGATIVE (NEGATIVE); UGLUCOSE NEGATIVE (NEGATIVE); UROBILINOGEN,URINE 0.2 EU/dL (0.2 - 1)
[2024-01-31 23:36] LABS: BACTERIA,URINE >30 (MANY) /HPF (None Seen); MUCUS,URINE 1+ /LPF (None Seen); RBC,URINE 0-5 /HPF (0-5); SQUAMOUS EPITHELIAL CELL,UR 0-3 (FEW) /LPF (0-3 (FEW))
[2024-02-01] VITALS (7 sets, daily range): BP systolic 108–160; BP diastolic 64–78; PULSE 52–74; RESP 16–19; TEMP 97.3–97.9; O2SAT 96–100
[2024-02-01] MEDS: AZITHROMYCIN 500 MG in DEXTROSE 5% 250 ML IV SCH (00:45)
[2024-02-01] MEDS ORDERED: ONDANSETRON 4 MG/2 ML VIAL IVP PRN (00:45)
[2024-02-01] MEDS ORDERED: MECLIZINE 25 MG TAB PO PRN (01:00)
[2024-02-01] MEDS: IPRATROPIUM 0.02% 0.5 MG/2.5 ML NEBU INH SCH (01:34)
[2024-02-01] MEDS ORDERED: cefTRIAXone 1,000 MG VIAL ONE (02:21)
[2024-02-01 05:46] LABS: BASOPHILS % (AUTO) 0.8 % (0.0-2.0); EOSINOPHILS # (AUTO) 0.1 K/uL (0-0.4); EOSINOPHILS % (AUTO) 1.8 % (0.0-4.0); HEMATOCRIT 30.9 % (36-48); HEMOGLOBIN 10.3 g/dL (12.0-16.0); LYMPHOCYTES # (AUTO) 2.1 K/uL (2.5-16.5); MEAN CORPUSCULAR HEMOGLOBIN 28 pg (27-31); MEAN CORPUSCULAR HGB CONC 33 g/dL (33-37); MEAN CORPUSCULAR VOLUME 84.1 fL (80-94); MONOCYTES # (AUTO) 0.3 K/uL (0.8-1.0); MONOCYTES % (AUTO) 5.5 % (1.7-9.3); NEUTROPHILS # (AUTO) 3.3 K/uL (1.8-7.7); NEUTROPHILS % (AUTO) 55.9 % (42.2-75.2); PLATELET COUNT (AUTO) 322 K/uL (140-450); RED BLOOD CELL COUNT(AUTO) 3.68 MIL/uL (4.20-5.40); RED CELL DISTRIBUTION WIDTH 15.1 % (11.6-13.7); WHITE BLOOD COUNT (AUTO) 5.9 K/uL (4.8-10.8)
[2024-02-01 06:12] LABS: ANION GAP 8.1 (8-16); CALCIUM 8.2 mg/dL (8.5-10.1); CARBON DIOXIDE 27.9 mmol/L (21-32); CHLORIDE 105 mmol/L (98-107); CREATININE 1.2 mg/dL (0.6-1.3); GLUCOSE 90 mg/dL (74-106); SODIUM SERUM 138 mmol/L (136-145); UREA NITROGEN, BLOOD 16 mg/dL (7-18)
[2024-02-01 06:13] LABS: ALANINE AMINOTRANSFERASE 9 U/L (12-78); ALBUMIN 2.6 g/dL (3.4-5.0); ALKALINE PHOSPHATASE 65 U/L (50-136); ASPARTATE AMINOTRANSFERASE 13 U/L (15-37); MAGNESIUM 1.8 mg/dL (1.8-2.4); TOTAL PROTEIN, SERUM 6.4 g/dL (6.4-8.2)
[2024-02-01 07:31] LABS: TOTAL BILIRUBIN 0.5 mg/dL (0.0-1.0)
[2024-02-01] MEDS: ALBUTEROL 0.083% 2.5 MG/3 ML NEBU INH SCH (07:55)
[2024-02-01] MEDS ORDERED: hydroCHLOROthiazide 25 MG TAB PO SCH (09:00)
[2024-02-01] MEDS ORDERED: NON-FORMULARY ITEM (Losartan/Hydrochlorothiazide (Losartan-Hctz 50-12.5 mg Tab) 1 TAB) PO SCH (09:00)
[2024-02-01] MEDS ORDERED: LOSARTAN 50 MG TAB PO SCH (09:00)
[2024-02-01] MEDS ORDERED: ENOXAPARIN 30 MG/0.3 ML SYR SUBQ SCH (09:00)
[2024-02-01 10:50] LABS: FLU A ANTIGEN negative (NEGATIVE); FLU B ANTIGEN NEGATIVE (NEGATIVE)
[2024-02-01] MEDS: FERROUS SULFATE 325 MG TABEC PO SCH (11:30)
[2024-02-01] MEDS: METOPROLOL SUCCINATE 50 MG TABER PO SCH (11:31)
[2024-02-01] MEDS: PANTOPRAZOLE 40 MG TABEC PO SCH (11:32)
[2024-02-01] MEDS: APIXABAN 2.5 MG TAB PO SCH (11:32)
[2024-02-01] MEDS: amLODIPine 5 MG TAB PO SCH (11:32)
[2024-02-01] MEDS: guaiFENesin 600 MG TABER PO SCH (11:33)
[2024-02-01] MEDS: GABAPENTIN 300 MG CAP PO SCH (11:33)
[2024-02-01] MEDS: POTASSIUM CHLORIDE 10 MEQ TABER PO SCH (11:37)
[2024-02-02] VITALS (7 sets, daily range): BP systolic 154–158; BP diastolic 71–72; PULSE 54–65; RESP 16–19; TEMP 97.1–97.4; O2SAT 95–100
[2024-02-02 07:17] LABS: BASOPHILS # (AUTO) 0.1 K/uL (0.00-0.22); BASOPHILS % (AUTO) 1.2 % (0.0-2.0); EOSINOPHILS # (AUTO) 0.2 K/uL (0-0.4); EOSINOPHILS % (AUTO) 2.5 % (0.0-4.0); HEMATOCRIT 32.8 % (36-48); HEMOGLOBIN 10.8 g/dL (12.0-16.0); LYMPHOCYTES # (AUTO) 1.8 K/uL (2.5-16.5); LYMPHOCYTES % (AUTO) 29.4 % (20.5-51.1); MEAN CORPUSCULAR HEMOGLOBIN 28 pg (27-31); MEAN CORPUSCULAR HGB CONC 33 g/dL (33-37); MEAN CORPUSCULAR VOLUME 84.4 fL (80-94); MONOCYTES # (AUTO) 0.4 K/uL (0.8-1.0); MONOCYTES % (AUTO) 6.5 % (1.7-9.3); NEUTROPHILS # (AUTO) 3.8 K/uL (1.8-7.7); NEUTROPHILS % (AUTO) 60.4 % (42.2-75.2); PLATELET COUNT (AUTO) 328 K/uL (140-450); RED BLOOD CELL COUNT(AUTO) 3.89 MIL/uL (4.20-5.40); RED CELL DISTRIBUTION WIDTH 15.4 % (11.6-13.7); WHITE BLOOD COUNT (AUTO) 6.2 K/uL (4.8-10.8)
[2024-02-02 07:47] LABS: ALANINE AMINOTRANSFERASE 10 U/L (12-78); ALBUMIN 2.9 g/dL (3.4-5.0); ALKALINE PHOSPHATASE 69 U/L (50-136); ANION GAP 11.2 (8-16); ASPARTATE AMINOTRANSFERASE 17 U/L (15-37); CALCIUM 8.6 mg/dL (8.5-10.1); CARBON DIOXIDE 25.6 mmol/L (21-32); CHLORIDE 104 mmol/L (98-107); GLUCOSE 91 mg/dL (74-106); POTASSIUM 3.8 mmol/L (3.5-5.1); SODIUM SERUM 137 mmol/L (136-145); TOTAL BILIRUBIN 0.5 mg/dL (0.0-1.0); TOTAL PROTEIN, SERUM 6.9 g/dL (6.4-8.2); UREA NITROGEN, BLOOD 11 mg/dL (7-18)
[2024-02-02] MEDS: LOSARTAN 50 MG TAB PO SCH (08:12)
[2024-02-02] MEDS: ACETAMINOPHEN 325 MG TAB PO PRN (14:07)
[2024-02-02] MEDS ORDERED: ALBU0.0912 INH (16:35)
[2024-02-02] MEDS ORDERED: LEVO750T75 PO (16:35)
[2024-02-02] MEDS ORDERED: ASCO1CAP75 PO (16:35)
[2024-02-02] MEDS ORDERED: MUC600 PO (16:35)
[2024-02-03 04:00] VITALS: BP 151/91; PULSE 56; RESP 18; TEMP 97.2; O2SAT 99
[2024-02-03 07:34] LABS: BASOPHILS # (AUTO) 0.1 K/uL (0.00-0.22); EOSINOPHILS # (AUTO) 0.1 K/uL (0-0.4); EOSINOPHILS % (AUTO) 2.4 % (0.0-4.0); HEMATOCRIT 34.1 % (36-48); HEMOGLOBIN 11.2 g/dL (12.0-16.0); LYMPHOCYTES # (AUTO) 2.1 K/uL (2.5-16.5); MEAN CORPUSCULAR HEMOGLOBIN 28 pg (27-31); MEAN CORPUSCULAR HGB CONC 33 g/dL (33-37); MEAN CORPUSCULAR VOLUME 84.6 fL (80-94); MONOCYTES # (AUTO) 0.4 K/uL (0.8-1.0); MONOCYTES % (AUTO) 6.5 % (1.7-9.3); NEUTROPHILS # (AUTO) 3.5 K/uL (1.8-7.7); NEUTROPHILS % (AUTO) 56.1 % (42.2-75.2); PLATELET COUNT (AUTO) 347 K/uL (140-450); RED BLOOD CELL COUNT(AUTO) 4.03 MIL/uL (4.20-5.40); RED CELL DISTRIBUTION WIDTH 15.4 % (11.6-13.7); WHITE BLOOD COUNT (AUTO) 6.2 K/uL (4.8-10.8)
[2024-02-03 07:58] LABS: ALANINE AMINOTRANSFERASE 8 U/L (12-78); ALBUMIN 2.9 g/dL (3.4-5.0); ALKALINE PHOSPHATASE 67 U/L (50-136); ANION GAP 11.7 (8-16); ASPARTATE AMINOTRANSFERASE 14 U/L (15-37); CALCIUM 8.7 mg/dL (8.5-10.1); CHLORIDE 103 mmol/L (98-107); CREATININE 0.9 mg/dL (0.6-1.3); GLUCOSE 88 mg/dL (74-106); POTASSIUM 3.7 mmol/L (3.5-5.1); SODIUM SERUM 138 mmol/L (136-145); TOTAL BILIRUBIN 0.4 mg/dL (0.0-1.0); UREA NITROGEN, BLOOD 11 mg/dL (7-18)
[2024-02-03 08:00] VITALS: PULSE 62; RESP 19; O2SAT 100
[2024-02-03 19:10] VITALS: PULSE 73; RESP 16; O2SAT 100
[2024-02-03 20:00] VITALS: BP 144/63; PULSE 64; RESP 18; TEMP 97.7; O2SAT 94
[2024-02-04] VITALS (7 sets, daily range): BP systolic 140–158; BP diastolic 67–76; PULSE 58–69; RESP 16–18; TEMP 97–98.5; O2SAT 98–99
[2024-02-04 07:33] LABS: BASOPHILS # (AUTO) 0.1 K/uL (0.00-0.22); EOSINOPHILS # (AUTO) 0.2 K/uL (0-0.4); EOSINOPHILS % (AUTO) 2.7 % (0.0-4.0); HEMATOCRIT 35.5 % (36-48); HEMOGLOBIN 11.6 g/dL (12.0-16.0); LYMPHOCYTES # (AUTO) 2.3 K/uL (2.5-16.5); LYMPHOCYTES % (AUTO) 37.5 % (20.5-51.1); MEAN CORPUSCULAR HEMOGLOBIN 28 pg (27-31); MEAN CORPUSCULAR HGB CONC 33 g/dL (33-37); MEAN CORPUSCULAR VOLUME 84.8 fL (80-94); MONOCYTES # (AUTO) 0.4 K/uL (0.8-1.0); MONOCYTES % (AUTO) 6.4 % (1.7-9.3); NEUTROPHILS # (AUTO) 3.2 K/uL (1.8-7.7); NEUTROPHILS % (AUTO) 52.4 % (42.2-75.2); PLATELET COUNT (AUTO) 342 K/uL (140-450); RED BLOOD CELL COUNT(AUTO) 4.18 MIL/uL (4.20-5.40); RED CELL DISTRIBUTION WIDTH 15.3 % (11.6-13.7); WHITE BLOOD COUNT (AUTO) 6.1 K/uL (4.8-10.8)
[2024-02-04 08:07] LABS: ALANINE AMINOTRANSFERASE 7 U/L (12-78); ALKALINE PHOSPHATASE 75 U/L (50-136); ANION GAP 13.3 (8-16); ASPARTATE AMINOTRANSFERASE 15 U/L (15-37); CARBON DIOXIDE 26.2 mmol/L (21-32); CHLORIDE 103 mmol/L (98-107); GLUCOSE 92 mg/dL (74-106); POTASSIUM 3.5 mmol/L (3.5-5.1); SODIUM SERUM 139 mmol/L (136-145); TOTAL BILIRUBIN 0.4 mg/dL (0.0-1.0); TOTAL PROTEIN, SERUM 7.1 g/dL (6.4-8.2); UREA NITROGEN, BLOOD 11 mg/dL (7-18)
[2024-02-04] MEDS: IPRATROPIUM 0.02% 0.5 MG/2.5 ML NEBU INH SCH (19:00)
[2024-02-04] MEDS: ALBUTEROL 0.083% 2.5 MG/3 ML NEBU INH SCH (19:00)
[2024-02-05 06:42] LABS: BASOPHILS # (AUTO) 0.1 K/uL (0.00-0.22); BASOPHILS % (AUTO) 0.9 % (0.0-2.0); EOSINOPHILS # (AUTO) 0.1 K/uL (0-0.4); EOSINOPHILS % (AUTO) 2.2 % (0.0-4.0); HEMATOCRIT 35.5 % (36-48); HEMOGLOBIN 11.6 g/dL (12.0-16.0); LYMPHOCYTES # (AUTO) 2.3 K/uL (2.5-16.5); LYMPHOCYTES % (AUTO) 35.2 % (20.5-51.1); MEAN CORPUSCULAR HEMOGLOBIN 28 pg (27-31); MEAN CORPUSCULAR HGB CONC 33 g/dL (33-37); MEAN CORPUSCULAR VOLUME 84.6 fL (80-94); MONOCYTES # (AUTO) 0.4 K/uL (0.8-1.0); MONOCYTES % (AUTO) 5.7 % (1.7-9.3); NEUTROPHILS # (AUTO) 3.7 K/uL (1.8-7.7); PLATELET COUNT (AUTO) 335 K/uL (140-450); RED CELL DISTRIBUTION WIDTH 15.7 % (11.6-13.7); WHITE BLOOD COUNT (AUTO) 6.6 K/uL (4.8-10.8)
[2024-02-05 07:27] LABS: ALANINE AMINOTRANSFERASE 10 U/L (12-78); ALKALINE PHOSPHATASE 76 U/L (50-136); ANION GAP 14.4 (8-16); ASPARTATE AMINOTRANSFERASE 18 U/L (15-37); CALCIUM 8.8 mg/dL (8.5-10.1); CARBON DIOXIDE 25.4 mmol/L (21-32); CHLORIDE 102 mmol/L (98-107); GLUCOSE 96 mg/dL (74-106); POTASSIUM 3.8 mmol/L (3.5-5.1); SODIUM SERUM 138 mmol/L (136-145); TOTAL BILIRUBIN 0.3 mg/dL (0.0-1.0); TOTAL PROTEIN, SERUM 7.1 g/dL (6.4-8.2); UREA NITROGEN, BLOOD 15 mg/dL (7-18)
[2024-02-05 08:00] VITALS: BP 131/79; PULSE 67; RESP 18; TEMP 98.2; O2SAT 97
[2024-02-05] MEDS: HYDROcodone/APAP 5/325 MG 1 TAB TAB PO PRN (10:08)
[2024-02-05] MEDS ORDERED: VIB100 PO (11:56)
[2024-02-05] MEDS ORDERED: CEFU-18 PO (11:56)
[2024-02-05] MEDS: DOXYCYCLINE 100 MG CAP PO SCH (13:04)
[2024-02-05] MEDS: DOXYCYCLINE 100 MG CAP ONE ×2 (13:05→20:10)
[2024-02-05 16:00] VITALS: BP 135/64; PULSE 69; RESP 18; TEMP 97.5; O2SAT 99
[2024-02-05 19:15] VITALS: PULSE 59; RESP 21; O2SAT 98
[2024-02-05] MEDS: ALBUTEROL 0.083% 2.5 MG/3 ML NEBU INH PRN (19:15)
[2024-02-05 19:35] VITALS: BP 135/72; PULSE 65; RESP 18; TEMP 98.1; O2SAT 96
[2024-02-05 20:00] VITALS: PULSE 65; RESP 18; O2SAT 96
[2024-02-05] MEDS ORDERED: cefuroxime axetiL 250 MG TAB PO SCH (21:00)
[2024-02-05 23:28] VITALS: O2SAT 98
[2024-02-06 04:00] VITALS: BP 142/77; PULSE 63; RESP 18; TEMP 98.3; O2SAT 100
[2024-02-06 07:46] VITALS: PULSE 60; RESP 20; O2SAT 98
[2024-02-06 08:00] VITALS: BP 104/59; PULSE 60; RESP 19; TEMP 98; O2SAT 98
[2024-02-06 08:18] VITALS: PULSE 68; RESP 20; O2SAT 99
[2024-02-06] MEDS: MORPHINE SULFATE 2 MG/ML SYR IVP PRN (09:48)
[2024-02-06] MEDS: DOXYCYCLINE 100 MG CAP ONE (10:31)
[2024-02-06] MEDS: cefuroxime axetiL 250 MG TAB PO SCH (12:18)
[2024-02-06 16:00] VITALS: BP 162/61; PULSE 66; RESP 19; TEMP 97.7; O2SAT 100
== END 2024-02-06 17:00 | DRG 193 ==
LOC: MED 17:27 → MTU 02-01 00:42
PROVIDERS: ADMIT Internal Medicine; ATTEND Internal Medicine
PROC: 05HY33Z Insertion of Infusion Device into Upper Vein, Percutaneous Approach (ICD-10-PCS; principal; 2024-02-03)
DX: J15.9 Unspecified bacterial pneumonia (principal); E43 Unspecified severe protein-calorie malnutrition; E87.6 Hypokalemia; Z20.822 Contact with and (suspected) exposure to COVID-19; I10 Essential (primary) hypertension; D64.9 Anemia, unspecified; K21.9 Gastro-esophageal reflux disease without esophagitis; G43.909 Migraine, unspecified, not intractable, without status migrainosus; Z86.73 Personal history of transient ischemic attack (TIA), and cerebral infarction without residual deficits; Z79.899 Other long term (current) drug therapy; Z79.51 Long term (current) use of inhaled steroids; Z90.710 Acquired absence of both cervix and uterus; Z85.72 Personal history of non-Hodgkin lymphomas; Z68.25 Body mass index [BMI] 25.0-25.9, adult
CPT/HCPCS: 36415; 70450; 71045; 80048; 80053; 80076; 81001; 83690; 83735; 84484; 85025; 87081; 87086; 87186; 93005; 94640; 96374; 97110; 97116; 97163-GP; 97530; 99285; J0456; J0696; J2270; J7060; J7613; J7644